=== PATIENT | female | born 1995 ===

== ENCOUNTER 2021-08-31 20:53 | Inpatient (IN) | payer OTHER, SELFPAY ==
--- NOTE | ~2021-08-31 | US_ITS ---
EXAMINATION: US PELVIS CLINICAL INFORMATION: Cramping COMPARISON: None TECHNIQUE: Ultrasound of the pelvis is performed using both transabdominal and transvaginal transducers along with Doppler. Transvaginal imaging is performed due to inadequate visualization transabdominally. FINDINGS: The uterus is anteverted and measures 6.2 x 1.8 x 3.9 cm in dimension. No focal uterine lesion is seen. There is an IUD in the uterus in satisfactory position. The endometrium does not appear thickened measuring 0.5 cm. The right ovary is normal-appearing and measures 3.7 x 2.9 x 1.7 cm. The left ovary measures 3.6 x 2 x 1.9 cm. There is a 1.6 x 1.8 x 2.1 cm complex left ovarian cyst. There is a small amount of fluid in the pelvis. US/US pelvic and transvaginal IMPRESSION: IUD in the uterus in satisfactory position. Small complex left ovarian cyst probably representing a physiologic cyst.
[2021-08-31 22:04] VITALS: BP 101/69; PULSE 82; RESP 16; TEMP 36.6; O2SAT 100
[2021-08-31 23:05] VITALS: BMI 22.8
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
--- NOTE | 2021-09-01 | ECG_ITS ---
Test Reason : baseline for antipsychotics Blood Pressure : / mmHG Vent. Rate : 085 BPM Atrial Rate : 085 BPM P-R Int : 128 ms QRS Dur : 082 ms QT Int : 360 ms P-R-T Axes : 072 082 052 degrees QTc Int : 428 ms Sinus rhythm with marked sinus arrhythmia Otherwise normal ECG No previous ECGs available Referred By: Maria E Her Electronically Signed By:Kavin Ashton
[2021-09-01 06:00] VITALS: BP 103/72; PULSE 84; RESP 16; TEMP 36.8; O2SAT 100
[2021-09-01 07:00] VITALS: BMI 21.7
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
[2021-09-01] MEDS: OLANZapine ODT 10 MG TAB.RAPDIS TRANSLINGU ×3 (11:01→20:45)
[2021-09-01] MEDS: LORazepam 1 MG TABLET 2 MG PO (11:01)
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
[2021-09-01] MEDS: Acetaminophen 325 MG TABLET 650 MG PO (12:56)
[2021-09-01 17:53] LABS: Alanine Aminotransferase 23 U/L (0-31); Albumin Level 3.9 g/dL (3.5-5.0); Alkaline Phosphatase 46 U/L (39-117); Anion Gap 8 (12-20); Aspartate Amino Transferase 17 U/L (5-31); Bilirubin Total 0.6 mg/dL (0.0-1.0); Blood Urea Nitrogen 10 mg/dL (9-16); Calcium 9.5 mg/dL (8.4-10.2); Carbon Dioxide 33 mmol/L (22-29); Chloride 105 mmol/L (96-108); Creatinine Clr Calc Pharmacy 83.9; Estimated Glomerular Filt Rate > 60; Glucose Random 75 mg/dL (60-115); Potassium 3.6 mmol/L (3.3-5.1); Sodium 142 mmol/L (135-145); Total Protein 5.9 g/dL (6.5-8.0)
[2021-09-01 18:00] VITALS: BP 108/64; PULSE 90; RESP 14; TEMP 36.7; O2SAT 100
[2021-09-02] MEDS: OLANZapine ODT 10 MG TAB.RAPDIS TRANSLINGU ×3 (00:30→20:56)
[2021-09-02] MEDS: LORazepam 1 MG TABLET PO ×3 (00:30→15:16)
[2021-09-02] MEDS: Acetaminophen 325 MG TABLET 650 MG PO ×2 (03:52→15:15)
[2021-09-02 07:57] LABS: Estimated Average Glucose 94 mg/dL; Hemoglobin A1c % 4.9 %
[2021-09-02 08:00] VITALS: BP 117/79; PULSE 81; RESP 15; TEMP 36.6; O2SAT 100
[2021-09-02 08:03] LABS: Cholesterol 120 mg/dL; HDL Cholesterol 42 mg/dL; LDL Cholesterol Calculated 69 mg/dl; Triglycerides 48 mg/dL
[2021-09-02 09:11] LABS: Folate 10.1 ng/mL (> or = 4.0); Vitamin B12 483 pg/mL (200-900)
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
[2021-09-02 20:59] VITALS: BP 123/81; PULSE 103; TEMP 36.2; O2SAT 100
[2021-09-03] MEDS: OLANZapine ODT 10 MG TAB.RAPDIS TRANSLINGU ×2 (09:40→20:28)
[2021-09-03 09:45] VITALS: BP 121/82; PULSE 120; RESP 14; TEMP 36.4; O2SAT 95
[2021-09-03 12:06] VITALS: BP 105/70; PULSE 89
[2021-09-03] MEDS: Acetaminophen 325 MG TABLET 650 MG PO (12:28)
[2021-09-03 18:00] VITALS: BP 118/70; PULSE 111; RESP 14; TEMP 36.3; O2SAT 100
[2021-09-03 22:00] VITALS: BP 118/71; PULSE 98
[2021-09-03 22:42] VITALS: BP 126/69; PULSE 99
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
[2021-09-04] MEDS: Acetaminophen 325 MG TABLET 650 MG PO ×2 (01:04→23:38)
[2021-09-04] MEDS: traZODone HCL 50 MG TABLET PO (01:05)
[2021-09-04] MEDS: hydrOXYzine HCL 25 MG TABLET PO (01:05)
[2021-09-04 06:00] VITALS: BP 121/70; PULSE 113; RESP 16; TEMP 36.6; O2SAT 99
[2021-09-04] MEDS: OLANZapine ODT 10 MG TAB.RAPDIS TRANSLINGU ×3 (08:46→21:21)
[2021-09-04] MEDS: LORazepam 1 MG TABLET PO (12:02)
[2021-09-04 18:00] VITALS: BP 127/73; PULSE 80; RESP 18; TEMP 37; O2SAT 100
--- NOTE | 2021-09-04 22:53 | HO.PSYCHPN ---
Subjective Subjective Date of Service: 09/04/21 Reason For Visit: Unspecified Cannabis related d/o, brief psychotic Subjective Notes: Conditional Voluntary Healthcare Proxy: No Mental Status Exam Mental Status Exam Narrative: Patient tangential bizarre preoccupation illogical denies SI denies HI tangential in thought mood flat anxious Patient with digressive speech paranoid preoccupations not aggressive passive no insight Diagnostics Vital Signs (24Hr): Vital Signs - 24 hr 09/04/21 06:00 09/04/21 18:00 Temperature 97.9 F 98.6 F Pulse Rate 113 H 80 Respiratory Rate 16 18 Blood Pressure 121/70 127/73 Pulse Oximetry 99 100 BMI result Body Mass Index 21.7 Labs Results: 09/01/21 17:23 Medications Medications Current Medications Acetaminophen (Acetaminophen 325 Mg Tablet) 650 mg PO Q6H PRN PRN Reason: Headache/Pain Mild Scale (1-3) Last Admin: 09/04/21 01:04 Dose: 650 mg Documented by: Al Hydroxide/Mg Hydroxide (Magnesium Hydrox/Alum Hydrox 30 Ml Oral.Susp) 30 ml PO Q6H PRN PRN Reason: Heartburn/Nausea Hydroxyzine HCl (Hydroxyzine Hcl 25 Mg Tablet) 25 mg PO BEDTIME PRN PRN Reason: Anxiety Last Admin: 09/04/21 01:05 Dose: 25 mg Documented by: Lorazepam (Lorazepam 1 Mg Tablet) 1 mg PO Q4H PRN PRN Reason: Anxiety Last Admin: 09/04/21 12:02 Dose: 1 mg Documented by: Magnesium Hydroxide (Milk Of Magnesia 30 Ml Oral.Susp) 30 ml PO DAILY PRN PRN Reason: Constipation Nicotine Polacrilex (Nicotine Polacrilex 2 Mg Gum) 2 mg BUCCAL Q2H PRN PRN Reason: Nicotine Cravings Olanzapine (Olanzapine Odt 10 Mg Tab.Rapdis) 10 mg TRANSLINGU BID PHI Last Admin: 09/04/21 21:21 Dose: 10 mg Documented by: Olanzapine (Olanzapine Odt 10 Mg Tab.Rapdis) 10 mg TRANSLINGU Q6H PRN PRN Reason: agitation Last Admin: 09/04/21 12:02 Dose: 10 mg Documented by: Trazodone HCl (Trazodone Hcl 50 Mg Tablet) 50 mg PO BEDTIME PRN PRN Reason: Insomnia Last Admin: 09/04/21 01:05 Dose: 50 mg Documented by: Allergies Allergies Allergy/AdvReac Type Severity Reaction Status Date / Time apple Allergy Unknown Itching Verified 08/31/21 23:48 strawberry Allergy Unknown Itching Verified 08/31/21 23:48 Assessment & Plan Assessment & Plan (1) Psychosis: Status: Acute Code(s): F29 - Unspecified psychosis not due to a substance or known physiological condition (2) Cocaine use disorder, moderate, dependence: Status: Acute Code(s): F14.20 - Cocaine dependence, uncomplicated Assessment and Plan: Ms. Mccoy is a 25 year-old woman with hx of cocaine use, admitted for first episode of psychosis unclear if induced by cocaine. pt presents as very disorganized, with poor attention, entering other peers room, grabbing things, some degree of delirium versus jennifer psychosis. We discussed risks, benefits and alternative treatment options with both pt and her parents. Pt agrees to start olanzapine for psychosis. PLAN 1. Admit to M3, 5 mins checks safety 2. Start olanzapine 10mg po BID, with extra prn doses for agitation. 3. Ativan 1mg po q6hrs anxiety 09/02/2021 Continue olanzapine clarify diagnosis get additional history needs much reassurance and support unclear exact of use of cocaine also recent question trauma 09/03/2021 Patient remains psychotic continue Zyprexa 09/04/21 Pt psychotic perplexed tangential consider change to risp haldol I spent minutes with the patient and/or on the patient floor today, greater than?50% of which was spent counseling/coordinating care. Reason for contiued inpatient stay Substantial Risk for: inability to function and rapid decompensation
[2021-09-05] MEDS: LORazepam 1 MG TABLET PO ×4 (00:09→23:03)
[2021-09-05] MEDS: OLANZapine ODT 10 MG TAB.RAPDIS TRANSLINGU ×2 (08:45→23:03)
[2021-09-05 09:00] VITALS: BP 113/62; PULSE 79; TEMP 37.1; O2SAT 98
--- NOTE | 2021-09-05 13:15 | HO.PSYCHPN ---
Subjective Subjective Date of Service: 09/05/21 Reason For Visit: Unspecified Cannabis related d/o, brief psychotic Subjective Notes: Conditional Voluntary Interim History: Pt with poor attention. She reports she does not remember much about the weekend or reasons for being in the hospital. She notes that she is more confused. She denies VH/AH. She continues to enter peers rooms, less intrusive to others. She denies SI/HI. She reports she works as [employer] at [employer] but does not remember for how long. Medication Compliance: Yes Side effects from medications: No Review of Systems Review of Systems Yes Unobtainable due to mental status Constitutional: Denies lethargy Eyes: Denies no additional eye complaints Denies dizziness Cardiovascular: Denies chest pain, Denies chest pain at rest, Reports claudication (left), Denies leg edema and Denies dyspnea Respiratory: Denies dyspnea Gastrointestinal: Denies constipation and Denies diarrhea Musculoskeletal: Denies tingling Denies dizziness, Denies memory loss and Denies tingling Psychiatric: Denies memory loss Diagnostics Vital Signs (24Hr): Vital Signs - 24 hr 09/04/21 18:00 Temperature 98.6 F Pulse Rate 80 Respiratory Rate 18 Blood Pressure 127/73 Pulse Oximetry 100 BMI result Body Mass Index 21.7 Labs Results: 09/01/21 17:23 Medications Medications Current Medications Acetaminophen (Acetaminophen 325 Mg Tablet) 650 mg PO Q6H PRN PRN Reason: Headache/Pain Mild Scale (1-3) Last Admin: 09/04/21 23:38 Dose: 650 mg Documented by: Al Hydroxide/Mg Hydroxide (Magnesium Hydrox/Alum Hydrox 30 Ml Oral.Susp) 30 ml PO Q6H PRN PRN Reason: Heartburn/Nausea Hydroxyzine HCl (Hydroxyzine Hcl 25 Mg Tablet) 25 mg PO BEDTIME PRN PRN Reason: Anxiety Last Admin: 09/04/21 01:05 Dose: 25 mg Documented by: Lorazepam (Lorazepam 1 Mg Tablet) 1 mg PO Q4H PRN PRN Reason: Anxiety Last Admin: 09/05/21 08:45 Dose: 1 mg Documented by: Magnesium Hydroxide (Milk Of Magnesia 30 Ml Oral.Susp) 30 ml PO DAILY PRN PRN Reason: Constipation Nicotine Polacrilex (Nicotine Polacrilex 2 Mg Gum) 2 mg BUCCAL Q2H PRN PRN Reason: Nicotine Cravings Olanzapine (Olanzapine Odt 10 Mg Tab.Rapdis) 10 mg TRANSLINGU BID PHI Last Admin: 09/05/21 08:45 Dose: 10 mg Documented by: Olanzapine (Olanzapine Odt 10 Mg Tab.Rapdis) 10 mg TRANSLINGU Q6H PRN PRN Reason: agitation Last Admin: 09/04/21 12:02 Dose: 10 mg Documented by: Trazodone HCl (Trazodone Hcl 50 Mg Tablet) 50 mg PO BEDTIME PRN PRN Reason: Insomnia Last Admin: 09/04/21 01:05 Dose: 50 mg Documented by: Allergies Allergies Allergy/AdvReac Type Severity Reaction Status Date / Time apple Allergy Unknown Itching Verified 08/31/21 23:48 strawberry Allergy Unknown Itching Verified 08/31/21 23:48 Assessment & Plan Assessment & Plan (1) Psychosis: Status: Acute Code(s): F29 - Unspecified psychosis not due to a substance or known physiological condition (2) Cocaine use disorder, moderate, dependence: Status: Acute Code(s): F14.20 - Cocaine dependence, uncomplicated Assessment and Plan: Ms. Mccoy is a 25 year-old woman with hx of cocaine use, admitted for first episode of psychosis unclear if induced by cocaine. pt presents as very disorganized, with poor attention, entering other peers room, grabbing things, some degree of delirium versus jennifer psychosis. We discussed risks, benefits and alternative treatment options with both pt and her parents. Pt agrees to start olanzapine for psychosis. PLAN 1. Admit to M3, 5 mins checks safety 2. Continue olanzapine 10mg po BID, with extra prn doses for agitation. 3. Ativan 1mg po q6hrs anxiety l I spent __25____ minutes with the patient and/or on the patient floor today, greater than?50% of which was spent counseling/coordinating care. Reason for contiued inpatient stay Substantial Risk for: inability to function
[2021-09-05] MEDS: Acetaminophen 325 MG TABLET 650 MG PO (14:02)
[2021-09-05] MEDS: hydrOXYzine HCL 25 MG TABLET PO (23:03)
[2021-09-05 23:05] VITALS: BP 131/75; PULSE 110; TEMP 37.1; O2SAT 99
[2021-09-05 23:13] VITALS: BP 115/59; PULSE 90
[2021-09-05 23:14] VITALS: BP 120/68; PULSE 109
[2021-09-05 23:15] VITALS: BP 120/68; PULSE 122
--- NOTE | 2021-09-06 01:29 | PC.NURSE ---
frequent request for bathroom. reports cramping and attributes this to ''having my IUD removed 3 months ago'' ? need for u/a.
[2021-09-06 08:00] VITALS: BP 125/84; PULSE 123; TEMP 37.3; O2SAT 100
[2021-09-06] MEDS: LORazepam 1 MG TABLET PO ×3 (09:15→21:05)
[2021-09-06] MEDS: OLANZapine ODT 10 MG TAB.RAPDIS TRANSLINGU ×2 (09:15→21:05)
[2021-09-06 10:00] VITALS: BP 125/75; PULSE 134
[2021-09-06 14:12] LABS: Appearance Urine CLEAR; Glucose Urine UA NEG (NEG); Leukocyte Esterase Urine NEG (NEG); Nitrite Urine NEG (NEG); Specific Gravity - Urine <= 1.005 (1.005-1.025); Urine Blood NEG (NEG); Urine Ketones NEG (NEG); Urine Protein NEG (NEG-TRACE)
[2021-09-06 14:13] LABS: Color Urine STRAW
--- NOTE | 2021-09-06 14:33 | P.PNPSI_ITS ---
Subjective Subjective Date of Service: 09/06/21 Reason For Visit: Unspecified Cannabis related d/o, brief psychotic Interim History: Pt reports she feels great! reports she has a lot of energy and can't stop which she states she likes Pt reports she thinks she may be or that her IUD felt off as she can't feel it. Pt denies burning sensation when urinating, however, had reported to nursing frequent urination. She initially denied pelvic pain but later reports having cramps, unable to provide much detail as timing or frequency or intensity. Pt pacing faust, intrusive to peers. Needs constant redirection. She denies SI/HI. She reports she hears voices of her brother but can't tell me what they say. She states she has not talk to them over the phone, that she hears them when she can't see them. Review of Systems Review of Systems Yes Unobtainable due to mental status Constitutional: Denies lethargy Eyes: Denies no additional eye complaints Denies dizziness Cardiovascular: Denies chest pain, Denies chest pain at rest, Reports claudication (left), Denies leg edema and Denies dyspnea Respiratory: Denies dyspnea Gastrointestinal: Denies constipation and Denies diarrhea Musculoskeletal: Denies tingling Denies dizziness, Denies memory loss and Denies tingling Psychiatric: Denies memory loss Mental Status Exam Mental Status Exam Narrative: Appearance: casually groomed, fair hygiene in NAD Behavior:guarded at times psychomotor:pacing, walking down the faust Speech:clear, regular rate, rhythm, spontaneous Thought process:disorganized Thought content: Mood: great Affect: expansive SI:denies HI:denies VH/AH:reports hearing voices of brothers when they are not physically present nor talking with them over the phone Delusions:thinks she is Insight/judgment:impaired x 2. Memory/cog: alert, not oriented to month, nor situation, impaired secondary to psychiatric symptoms. Diagnostics Vital Signs (24Hr): Vital Signs - 24 hr 09/05/21 23:05 09/05/21 23:13 09/05/21 23:14 Temperature 98.7 F Pulse Rate 110 H 90 109 H Blood Pressure 131/75 115/59 L 120/68 Pulse Oximetry 99 09/05/21 23:15 09/06/21 08:00 09/06/21 10:00 Temperature 99.1 F Pulse Rate 122 H 123 H 134 H Blood Pressure 120/68 125/84 125/75 Pulse Oximetry 100 BMI result Body Mass Index 21.7 Labs Results: 09/01/21 17:23 Labs: Laboratory Results - last 48 hr 09/06/21 09:30 Urine Color STRAW Urine Appearance CLEAR Urine pH 6.0 Ur Specific Garrison <= 1.005 Urine Protein NEG Urine Glucose (UA) NEG Urine Ketones NEG Urine Blood NEG Urine Nitrite NEG Ur Leukocyte Esterase NEG Medications Medications Current Medications Acetaminophen (Acetaminophen 325 Mg Tablet) 650 mg PO Q6H PRN PRN Reason: Headache/Pain Mild Scale (1-3) Last Admin: 09/05/21 14:02 Dose: 650 mg Documented by: Al Hydroxide/Mg Hydroxide (Magnesium Hydrox/Alum Hydrox 30 Ml Oral.Susp) 30 ml PO Q6H PRN PRN Reason: Heartburn/Nausea Hydroxyzine HCl (Hydroxyzine Hcl 25 Mg Tablet) 25 mg PO BEDTIME PRN PRN Reason: Anxiety Last Admin: 09/05/21 23:03 Dose: 25 mg Documented by: Magnesium Hydroxide (Milk Of Magnesia 30 Ml Oral.Susp) 30 ml PO DAILY PRN PRN Reason: Constipation Nicotine Polacrilex (Nicotine Polacrilex 2 Mg Gum) 2 mg BUCCAL Q2H PRN PRN Reason: Nicotine Cravings Olanzapine (Olanzapine Odt 10 Mg Tab.Rapdis) 10 mg TRANSLINGU BID PHI Last Admin: 09/06/21 09:15 Dose: 10 mg Documented by: Olanzapine (Olanzapine Odt 10 Mg Tab.Rapdis) 10 mg TRANSLINGU Q6H PRN PRN Reason: agitation Last Admin: 09/04/21 12:02 Dose: 10 mg Documented by: Trazodone HCl (Trazodone Hcl 50 Mg Tablet) 50 mg PO BEDTIME PRN PRN Reason: Insomnia Last Admin: 09/04/21 01:05 Dose: 50 mg Documented by: Allergies Allergies Allergy/AdvReac Type Severity Reaction Status Date / Time apple Allergy Unknown Itching Verified 08/31/21 23:48 strawberry Allergy Unknown Itching Verified 08/31/21 23:48 Assessment & Plan Assessment & Plan (1) Psychosis: Status: Acute Code(s): F29 - Unspecified psychosis not due to a substance or known physiological condition (2) Cocaine use disorder, moderate, dependence: Status: Acute Code(s): F14.20 - Cocaine dependence, uncomplicated Assessment and Plan: Ms. Mccoy is a 25 year-old woman with hx of cocaine use, admitted for first episode of psychosis unclear if induced by cocaine. pt presents as very disorganized, with poor attention, entering other peers room, grabbing things, some degree of delirium versus jennifer psychosis. We discussed risks, benefits and alternative treatment options with both pt and her parents. Pt agrees to start olanzapine for psychosis. PLAN 1. Admit to M3, 5 mins checks safety 2. Continue olanzapine 10mg po BID, with extra prn doses for agitation. Start lithium 300mg po BID. Schedule ativan 1mg po TID 3. Ativan 1mg po q6hrs anxiety l I spent minutes with the patient and/or on the patient floor today, greater than?50% of which was spent counseling/coordinating care. Reason for contiued inpatient stay Substantial Risk for: inability to function
[2021-09-06 20:00] VITALS: BP 122/78; PULSE 95; RESP 16; TEMP 36.1; O2SAT 100
[2021-09-06] MEDS: Lithium Carbonate 300 MG CAPSULE PO (21:06)
[2021-09-06 22:10] VITALS: BP 114/65; PULSE 92
[2021-09-07] VITALS (7 sets, daily range): BP systolic 104–129; BP diastolic 59–81; PULSE 100–130; RESP 16; TEMP 36.1–36.9; O2SAT 100
--- NOTE | 2021-09-07 | ECG_ITS ---
Test Reason : cp Blood Pressure : / mmHG Vent. Rate : 104 BPM Atrial Rate : 104 BPM P-R Int : 138 ms QRS Dur : 070 ms QT Int : 334 ms P-R-T Axes : -08 -16 000 degrees QTc Int : 439 ms Sinus tachycardia Inferior infarct , age undetermined Abnormal ECG When compared with ECG of 02-SEP-2021 17:12, Inferior infarct is now Present T wave inversion now evident in Inferior leads Referred By: Maria E Her Electronically Signed By:NURYS AMOS MD
[2021-09-07] MEDS: OLANZapine ODT 10 MG TAB.RAPDIS TRANSLINGU ×2 (08:29→20:34)
[2021-09-07] MEDS: LORazepam 1 MG TABLET PO ×3 (08:30→20:33)
[2021-09-07] MEDS: Lithium Carbonate 300 MG CAPSULE PO (08:30)
--- NOTE | 2021-09-07 12:45 | P.PNPSI_ITS ---
Subjective Subjective Date of Service: 09/07/21 Reason For Visit: Unspecified Cannabis related d/o, brief psychotic Subjective Notes: Conditional Voluntary Interim History: Pt continues to report that she is very great! reports she has a lot of energy and can't stop which she states she likes Pt continues to be confused as to why she is in hospital. She also states it is august despite telling her several times that it is [place]. Pt pacing faust, intrusive to peers. Needs constant redirection. She denies SI/HI. She reports she hears voices of her brother but can't tell me what they say. She states she has not talk to them over the phone, that she hears them when she can't see them. No significant change. Medication Compliance: Yes Side effects from medications: No Review of Systems Review of Systems Yes Unobtainable due to mental status Constitutional: Denies lethargy Eyes: Denies no additional eye complaints Denies dizziness Cardiovascular: Denies chest pain, Denies chest pain at rest, Reports claudication (left), Denies leg edema and Denies dyspnea Respiratory: Denies dyspnea Gastrointestinal: Denies constipation and Denies diarrhea Musculoskeletal: Denies tingling Denies dizziness, Denies memory loss and Denies tingling Psychiatric: Denies memory loss Mental Status Exam Mental Status Exam Narrative: Appearance: casually groomed, fair hygiene in NAD Behavior:guarded at times psychomotor:pacing, walking down the faust Speech:clear, regular rate, rhythm, spontaneous Thought process:disorganized Thought content: Mood: great Affect: expansive SI:denies HI:denies VH/AH:reports hearing voices of brothers when they are not physically present nor talking with them over the phone Delusions:thinks she is Insight/judgment:impaired x 2. Memory/cog: alert, not oriented to month, nor situation, impaired secondary to psychiatric symptoms. Diagnostics Vital Signs (24Hr): Vital Signs - 24 hr 09/07/21 20:10 09/07/21 22:16 09/07/21 22:17 Temperature 97 F Pulse Rate 100 110 H 130 H Respiratory Rate 16 Blood Pressure 104/59 L 129/65 126/65 Pulse Oximetry 100 09/08/21 08:15 Temperature Pulse Rate 144 H Respiratory Rate Blood Pressure 124/61 Pulse Oximetry BMI result Body Mass Index 21.7 Labs Results: 09/01/21 17:23 Labs: Laboratory Results - last 48 hr 09/07/21 09/08/21 09/08/21 22:40 12:26 14:22 ESR Troponin I High Sens < 3.5 TSH 3.02 COVID-19 ([facility]) Negative COVID-19 Clin Com See Note 09/08/21 14:23 ESR 2 Troponin I High Sens TSH COVID-19 ([facility]) COVID-19 Clin Com Imaging Radiology Impressions: ITS Impressions Pelvic/Transvag US 09/07/21 09:41 IMPRESSION: IUD in the uterus in satisfactory position. Small complex left ovarian cyst probably representing a physiologic cyst. Medications Medications Current Medications Acetaminophen (Acetaminophen 325 Mg Tablet) 650 mg PO Q6H PRN PRN Reason: Headache/Pain Mild Scale (1-3) Last Admin: 09/08/21 11:50 Dose: 650 mg Documented by: Al Hydroxide/Mg Hydroxide (Magnesium Hydrox/Alum Hydrox 30 Ml Oral.Susp) 30 ml PO Q6H PRN PRN Reason: Heartburn/Nausea Benztropine Mesylate (Benztropine Mesylate 1 Mg Tablet) 1 mg PO Q8H PRN PRN Reason: Extrapyramidal Effects Haloperidol (Haloperidol 5 Mg Tablet) 5 mg PO BID [facility] Hydroxyzine HCl (Hydroxyzine Hcl 25 Mg Tablet) 25 mg PO BEDTIME PRN PRN Reason: Anxiety Last Admin: 09/07/21 21:20 Dose: 25 mg Documented by: Gresham Carbonate (Gresham Carbonate 300 Mg Capsule) 600 mg PO BID [facility] Last Admin: 09/08/21 09:01 Dose: 600 mg Documented by: Lorazepam (Lorazepam 1 Mg Tablet) 1 mg PO TID [facility] Last Admin: 09/08/21 15:30 Dose: 1 mg Documented by: Magnesium Hydroxide (Milk Of Magnesia 30 Ml Oral.Susp) 30 ml PO DAILY PRN PRN Reason: Constipation Metoprolol Tartrate (Metoprolol Tartrate 25 Mg Tablet) 25 mg PO BID [facility]; Protocol Last Admin: 09/08/21 12:52 Dose: 25 mg Documented by: Nicotine Polacrilex (Nicotine Polacrilex 2 Mg Gum) 2 mg BUCCAL Q2H PRN PRN Reason: Nicotine Cravings Olanzapine (Olanzapine Odt 10 Mg Tab.Rapdis) 10 mg TRANSLINGU Q6H PRN PRN Reason: agitation Last Admin: 09/08/21 05:17 Dose: 10 mg Documented by: Trazodone HCl (Trazodone Hcl 100 Mg Tablet) 100 mg PO BEDTIME PHI Trazodone HCl (Trazodone Hcl 100 Mg Tablet) 100 mg PO BEDTIME PRN PRN Reason: sleep Allergies Allergies Allergy/AdvReac Type Severity Reaction Status Date / Time apple Allergy Unknown Itching Verified 08/31/21 23:48 strawberry Allergy Unknown Itching Verified 08/31/21 23:48 Assessment & Plan Assessment & Plan (1) Psychosis: Status: Acute Code(s): F29 - Unspecified psychosis not due to a substance or known physiological condi tion (2) Cocaine use disorder, moderate, dependence: Status: Acute Code(s): F14.20 - Cocaine dependence, uncomplicated Assessment and Plan: Ms. Mccoy is a 25 year-old woman with hx of cocaine use, admitted for first episode of psychosis unclear if induced by cocaine. pt presents as very disorganized, with poor attention, entering other peers room, grabbing things, some degree of delirium versus jennifer psychosis. We discussed risks, benefits and alternative treatment options with both pt and her parents. Pt agrees to start olanzapine for psychosis. PLAN 1. Admit to M3, 5 mins checks safety 2. Continue olanzapine 10mg po BID, with extra prn doses for agitation. Increase lithium 600mg po BID. Schedule ativan 1mg po TID 3. Ativan 1mg po q6hrs anxiety l I spent minutes with the patient and/or on the patient floor today, greater than?50% of which was spent counseling/coordinating care. Reason for contiued inpatient stay Substantial Risk for: inability to function
[2021-09-07] MEDS: Acetaminophen 325 MG TABLET 650 MG PO (19:21)
[2021-09-07] MEDS: Lithium Carbonate 300 MG CAPSULE 600 MG PO (20:34)
[2021-09-07] MEDS: hydrOXYzine HCL 25 MG TABLET PO (21:20)
[2021-09-07 23:19] LABS: COVID-19 Test Negative (Negative)
--- NOTE | 2021-09-08 | ECG_ITS ---
Test Reason : PALPITATIONS Blood Pressure : / mmHG Vent. Rate : 085 BPM Atrial Rate : 085 BPM P-R Int : 150 ms QRS Dur : 082 ms QT Int : 354 ms P-R-T Axes : 069 077 052 degrees QTc Int : 421 ms Normal sinus rhythm Normal ECG When compared with ECG of 07-SEP-2021 18:48, Criteria for Inferior infarct are no longer Present ST elevation now present in Anterior leads T wave inversion no longer evident in Inferior leads Referred By: Maria E Her Electronically Signed By:NURYS AMOS MD
--- NOTE | 2021-09-08 | EEG_ITS ---
The waking background activity consists of low voltage fast frequencies seen diffusely, intermixed with the low voltage 9 to 10 hertz posterior alpha frequency. Photic stimulation is without activation. Hyperventilation was omitted. Drowsiness is characterized with diffuse theta slowing. No focal, lateralizing, or paroxysmal discharges seen. IMPRESSION: This awake and drowsy EEG appears within normal limits. MD ALFONZO Alva/ALEC / [id number]
[2021-09-08] MEDS: Acetaminophen 325 MG TABLET 650 MG PO ×3 (05:06→21:34)
[2021-09-08] MEDS: OLANZapine ODT 10 MG TAB.RAPDIS TRANSLINGU ×2 (05:17→09:01)
--- NOTE | 2021-09-08 05:22 | PC.NURSE ---
Patient responding to internal stimuli. Patient given Zyprexa 10 mg Po prn.
[2021-09-08 08:15] VITALS: BP 124/61; BP 124/73; BP 126/76; PULSE 118; PULSE 120; PULSE 144
[2021-09-08] MEDS: Lithium Carbonate 300 MG CAPSULE 600 MG PO (09:01)
[2021-09-08] MEDS: LORazepam 1 MG TABLET PO ×3 (09:01→21:34)
--- NOTE | 2021-09-08 10:03 | PC.NURSE ---
Patient tachycardic (118 supine, 120 sitting, 144 standing) but asymptomatic this morning noted when orthostatic VS were assessed and reported to Maria E Her NP. No further orders given.
[2021-09-08 12:45] VITALS: BP 123/75; PULSE 136; RESP 16; TEMP 36.6; O2SAT 98
[2021-09-08] MEDS: Metoprolol Tartrate 25 MG TABLET PO ×2 (12:52→21:34)
[2021-09-08] MEDS: Aspirin 81 MG TAB.CHEW PO (12:53)
[2021-09-08 12:58] LABS: Troponin-I High Sensitivity < 3.5 ng/L (<3.5-17.0)
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
[2021-09-08 14:10] VITALS: BP 123/75; PULSE 97; RESP 16; O2SAT 100
[2021-09-08 15:40] LABS: TSH reflex Free T4 3.02 uIU/mL (0.32-4.0)
[2021-09-08 15:50] LABS: Erythrocyte Sedimentation Rate 2 MM/HR (0-20)
[2021-09-08 18:00] VITALS: BP 127/86; PULSE 94; RESP 16; TEMP 36.4; O2SAT 100
[2021-09-08] MEDS: Throat Lozenge, Medicated LOZENGE 1 LOZENGE MUCOUS MEM ×2 (21:33→23:33)
[2021-09-08] MEDS: hydrOXYzine HCL 25 MG TABLET PO (21:34)
[2021-09-08] MEDS: traZODone HCL 100 MG TABLET PO (21:34)
[2021-09-08] MEDS: HaloperidoL 5 MG TABLET PO (21:34)
[2021-09-08] MEDS: Magnesium Hydrox/Alum Hydrox 30 ML ORAL.SUSP PO (23:33)
[2021-09-09] MEDS: Acetaminophen 325 MG TABLET 650 MG PO ×2 (03:55→13:21)
[2021-09-09 07:47] VITALS: BP 113/68; PULSE 85; RESP 16; TEMP 36.1; O2SAT 99
[2021-09-09] MEDS: LORazepam 1 MG TABLET PO ×2 (07:58→21:32)
[2021-09-09] MEDS: Metoprolol Tartrate 25 MG TABLET PO ×2 (07:58→21:32)
[2021-09-09] MEDS: HaloperidoL 5 MG TABLET PO ×2 (07:58→21:31)
[2021-09-09 08:24] LABS: HIV AB/AG Nonreactive (Nonreactive); HIV Num 1 0.07 S/CO (0.00-0.99)
[2021-09-09 08:35] LABS: Syphilis Screen Nonreactive (Nonreactive)
[2021-09-09 08:42] LABS: MANUAL DIFF FLAG NO
[2021-09-09 08:47] LABS: Basophils Percent Auto 0.2 % (0-2); Eosinophils Absolute Auto 0.2 X10*3/uL (0.0-0.4); Eosinophils Percent Auto 2.1 % (0-4); Hemoglobin 12.9 g/dl (12.0-16.0); Imm Gran Abs Auto 0.07 X10*3/uL (0.00-0.03); Imm Gran Pct Auto 0.8 % (0.0-0.4); Lymphocytes Absolute Auto 2.1 X10*3/uL (1.2-4.9); Lymphocytes Percent Auto 24.8 % (20-40); Mean Corpuscular HGB Conc 32.3 g/dl (31.0-35.0); Mean Corpuscular Volume 86.8 fL (80.0-98.0); Mean Platelet Volume 10.4 fL (9.4-12.3); Monocytes Absolute Auto 0.8 X10*3/uL (0.1-1.2); Neutrophils Absolute Auto 5.4 x10*3/uL (2.0-8.3); Neutrophils Percent Auto 63.1 % (45-73); Platelet Count 199 X10*3/uL (160-400); Red Blood Count 4.61 X10*6/uL (4.20-5.50); Red Cell Distribution Width 13.9 % (11.0-16.0); White Blood Count 8.5 X10*3/uL (4.8-10.8)
[2021-09-09 09:15] LABS: Alanine Aminotransferase 38 U/L (0-31); Albumin Level 3.9 g/dL (3.5-5.0); Alkaline Phosphatase 40 U/L (39-117); Anion Gap 11 (12-20); Aspartate Amino Transferase 25 U/L (5-31); Bilirubin Total < 0.2 mg/dL (0.0-1.0); Blood Urea Nitrogen 14 mg/dL (9-16); Calcium 9.5 mg/dL (8.4-10.2); Carbon Dioxide 25 mmol/L (22-29); Chloride 109 mmol/L (96-108); Creatinine Clr Calc Pharmacy 91.9; Estimated Glomerular Filt Rate > 60; Glucose Random 80 mg/dL (60-115); Potassium 3.9 mmol/L (3.3-5.1); Sodium 141 mmol/L (135-145); Total Protein 6.1 g/dL (6.5-8.0)
[2021-09-09] MEDS: Throat Lozenge, Medicated LOZENGE 1 LOZENGE MUCOUS MEM (11:40)
--- NOTE | 2021-09-09 12:03 | P.PNPSI_ITS ---
Subjective Subjective Date of Service: 09/09/21 Reason For Visit: Palpitations Subjective Notes: Conditional Voluntary Interim History: Pt met with this designer writer and ELEONORA Pompa. Pt reports she does not remember why she is here, despite this information being provided daily. She also continues to report that it is August. Pt continues to report she has a lot of energy, she appears tired and states she will lay down to bed after meeting but after she is seen pacing faust slowly. Pt denies any pain. She reports hearing voices of all my good memories. When asked if they are multiple voices or female/male, she states may be transgendered. Pt makes reference to having a fake father, being but would not elaborate. She continues to present as disorganized, entering peers room, purposeless behaviors. She denies SI/HI. Medication Compliance: Yes Side effects from medications: No Review of Systems Review of Systems Yes Unobtainable due to mental status Constitutional: Reports no additional constitutional complaints and Denies lethargy Eyes: Reports no additional eye complaints Reports system reviewed and no additional complaints, except as documented and Denies dizziness Cardiovascular: Reports chest pain, Denies chest pain at rest, Denies chest pain with activity, Reports rapid heart rate, Reports claudication (left), Denies leg edema, Denies lightheadedness, Denies Loss of Consciousness and Denies dyspnea Respiratory: Reports no additional respiratory complaints and Denies dyspnea Gastrointestinal: Reports no additional gastrointestinal complaints, Denies constipation and Denies diarrhea Musculoskeletal: Reports no additional musculoskeletal complaints and Denies tingling Skin/Breast: Reports system reviewed and no additional complaints, except as do cu Reports system reviewed and no additional complaints, except as documented, Denies dizziness, Denies memory loss and Denies tingling Psychiatric: Reports no additional psychiatric complaints and Denies memory loss Endocrine: Reports no additional endocrine complaints Hematologic/Lymphatic: Reports no additional hematologic/lymphatic complaints Mental Status Exam Mental Status Exam Narrative: Appearance: casually groomed, fair hygiene in NAD Behavior:pleasantly disoriented psychomotor:pacing, walking down the faust Speech:clear, regular rate, rhythm, spontaneous Thought process:disorganized Thought content:feeling great, Mood: great Affect: constricted SI:denies HI:denies VH/AH:reports hearing voices of brothers when they are not physically present nor talking with them over the phone Delusions:thinks she is Insight/judgment:impaired x 2. Memory/cog: alert, not oriented to month, nor situation, impaired secondary to psychiatric symptoms. Diagnostics Vital Signs (24Hr): Vital Signs - 24 hr 09/08/21 18:00 09/09/21 07:47 Temperature 97.6 F 97.0 F Pulse Rate 94 85 Respiratory Rate 16 16 Blood Pressure 127/86 113/68 Pulse Oximetry 100 99 BMI result Body Mass Index 21.7 Labs Results: 09/09/21 08:23 09/09/21 08:23 Labs: Laboratory Results - last 48 hr 09/07/21 09/08/21 09/08/21 22:40 12:26 14:22 WBC RBC Hgb Hct MCV MCH MCHC RDW Plt Count MPV Immature Gran % (Auto) Neut % (Auto) Lymph % (Auto) Island % (Auto) Eos % (Auto) Baso % (Auto) Lymph # (Auto) Island # (Auto) Eos # (Auto) Baso # (Auto) Abs Immat Gran (auto) Absolute Neuts (auto) Absolute Nucleated RBC Nucleated RBC % (auto) ESR Sodium Potassium Chloride Carbon Dioxide Anion Gap BUN Creatinine Estim Creat Clear Calc Estimated GFR Random Glucose Calcium Total Bilirubin AST ALT Alkaline Phosphatase Troponin I High Sens < 3.5 C-React Prot High Sens Total Protein Albumin TSH T.pallidum Ab (EIA) COVID-19 (AZUL) Negative [facility] See Note HIV 1&2 Ab/P24 Ag 4thGn Nonreactive 09/08/21 09/08/21 09/08/21 14:22 14:23 14:23 WBC RBC Hgb Hct MCV MCH MCHC RDW Plt Count MPV Immature Gran % (Auto) Neut % (Auto) Lymph % (Auto) Island % (Auto) Eos % (Auto) Baso % (Auto) Lymph # (Auto) Island # (Auto) Eos # (Auto) Baso # (Auto) Abs Immat Gran (auto) Absolute Neuts (auto) Absolute Nucleated RBC Nucleated RBC % (auto) ESR Sodium Potassium Chloride Carbon Dioxide Anion Gap BUN Creatinine Estim Creat Clear Calc Estimated GFR Random Glucose Calcium Total Bilirubin AST ALT Alkaline Phosphatase Troponin I High Sens C-React Prot High Sens 1.5 Total Protein Albumin TSH 3.02 T.pallidum Ab (EIA) Nonreactive COVID-19 (AZUL) COVID-[facility] Com HIV 1&2 Ab/P24 Ag 4thGn 09/08/21 09/09/21 09/09/21 14:23 08:23 08:23 WBC 8.5 RBC 4.61 Hgb 12.9 Hct 40.0 MCV 86.8 MCH 28.0 MCHC 32.3 RDW 13.9 Plt Count 199 MPV 10.4 Immature Gran % (Auto) 0.8 H Neut % (Auto) 63.1 Lymph % (Auto) 24.8 Island % (Auto) 9.0 Eos % (Auto) 2.1 Baso % (Auto) 0.2 Lymph # (Auto) 2.1 Island # (Auto) 0.8 Eos # (Auto) 0.2 Baso # (Auto) 0.0 Abs Immat Gran (auto) 0.07 H Absolute Neuts (auto) 5.4 Absolute Nucleated RBC 0.000 Nucleated RBC % (auto) 0.0 ESR 2 Sodium 141 Potassium 3.9 Chloride 109 H Carbon Dioxide 25 Anion Gap 11 L BUN 14 Creatinine 0.74 Estim Creat Clear Calc 91.9 Estimated GFR > 60 Random Glucose 80 Calcium 9.5 Total Bilirubin < 0.2 AST 25 D ALT 38 H Alkaline Phosphatase 40 Troponin I High Sens C-React Prot High Sens Total Protein 6.1 L Albumin 3.9 TSH T.pallidum Ab (EIA) COVID-19 (AZUL) COVID-19 Clin Com HIV 1&2 Ab/P24 Ag 4thGn Imaging Radiology Impressions: ITS Impressions Pelvic/Transvag US 09/07/21 09:41 IMPRESSION: IUD in the uterus in satisfactory position. Small complex left ovarian cyst probably representing a physiologic cyst. Medications Medications Current Medications Acetaminophen (Acetaminophen 325 Mg Tablet) 650 mg PO Q6H PRN PRN Reason: Headache/Pain Mild Scale (1-3) Last Admin: 09/09/21 13:21 Dose: 650 mg Documented by: Al Hydroxide/Mg Hydroxide (Magnesium Hydrox/Alum Hydrox 30 Ml Oral.Susp) 30 ml PO Q6H PRN PRN Reason: Heartburn/Nausea Last Admin: 09/08/21 23:33 Dose: 30 ml Documented by: Benzocaine (Throat Lozenge, Medicated Lozenge) 1 lozenge MUCOUS MEM Q2H PRN PRN Reason: Sore Throat Last Admin: 09/09/21 11:40 Dose: 1 lozenge Documented by: Benztropine Mesylate (Benztropine Mesylate 1 Mg Tablet) 1 mg PO Q8H PRN PRN Reason: Extrapyramidal Effects Divalproex Sodium (Divalproex Sodium 500 Mg Tablet.Dr) 500 mg PO BID [facility] Last Admin: 09/09/21 12:48 Dose: 500 mg Documented by: Haloperidol (Haloperidol 5 Mg Tablet) 5 mg PO BID [facility] Last Admin: 09/09/21 07:58 Dose: 5 mg Documented by: Hydroxyzine HCl (Hydroxyzine Hcl 25 Mg Tablet) 25 mg PO BEDTIME PRN PRN Reason: Anxiety Last Admin: 09/08/21 21:34 Dose: 25 mg Documented by: Lorazepam (Lorazepam 1 Mg Tablet) 1 mg PO TID [facility] Last Admin: 09/09/21 16:02 Dose: Not Given Documented by: Magnesium Hydroxide (Milk Of Magnesia 30 Ml Oral.Susp) 30 ml PO DAILY PRN PRN Reason: Constipation Metoprolol Tartrate (Metoprolol Tartrate 25 Mg Tablet) 25 mg PO BID [facility]; Protocol Last Admin: 09/09/21 07:58 Dose: 25 mg Documented by: Nicotine Polacrilex (Nicotine Polacrilex 2 Mg Gum) 2 mg BUCCAL Q2H PRN PRN Reason: Nicotine Cravings Olanzapine (Olanzapine Odt 10 Mg Tab.Rapdis) 10 mg TRANSLINGU Q6H PRN PRN Reason: agitation Last Admin: 09/08/21 05:17 Dose: 10 mg Documented by: Trazodone HCl (Trazodone Hcl 100 Mg Tablet) 100 mg PO BEDTIME [facility] Last Admin: 09/08/21 21:34 Dose: 100 mg Documented by: Trazodone HCl (Trazodone Hcl 100 Mg Tablet) 100 mg PO BEDTIME PRN PRN Reason: sleep Allergies Allergies Allergy/AdvReac Type Severity Reaction Status Date / Time apple Allergy Unknown Itching Verified 08/31/21 23:48 strawberry Allergy Unknown Itching Verified 08/31/21 23:48 Assessment & Plan Assessment & Plan (1) Cocaine use disorder, moderate, dependence: Status: Acute Code(s): F14.20 - Cocaine dependence, uncomplicated (2) Psychosis: Status: Acute Code(s): F29 - Unspecified psychosis not due to a substance or known physiological condition Assessment and Plan: Ms. Kovacs is a 25 year-old woman who was brought to [facility] ED after she presented as disorganized, confused, responding to internal stimuli. Hx of cocaine but utox neg in ED. This is her first psychotic episode 09/09 continues to present as disorganized, anterograde amnesia. reports AH of brother and good memories. pacing, not sleeping well. PLAN 1. continue haldol 5mg po BID (switched from olanzapine due to minimal efficacy) 2. continue ativan 1mg po TID 3. Start depakote 500mg po BID 4. coordination of care 5. safety- 15 minutes checks. I spent _25 minutes with the patient and/or on the patient floor today, greater than?50% of which was spent counseling/coordinating care. Reason for contiued inpatient stay Substantial Risk for: inability to function
[2021-09-09] MEDS: LORazepam 2 MG/ML VIAL IM (12:48)
[2021-09-09] MEDS: Divalproex Sodium 500 MG TABLET.DR PO ×2 (12:48→21:31)
[2021-09-09 13:41] LABS: CRP High Sensitivity 1.5 mg/L
--- NOTE | 2021-09-09 14:18 | P.CONCA_ITS ---
History of Present Illness History of Present Illness Date of Service: 09/09/21 Requesting physician: Maria E Her Chief complaint: Palpitations Narrative: I was requested to see Chen in cardiology consultation today for symptoms of palpitation chest discomfort. She is a 25-year-old of female was admitted with question psychosis. Yesterday she says she was having anxiety episodes subsequently noticed heart rate racing and some chest discomfort. She says she has never had this symptoms in the past. EKG performed yesterday showed sinus tachycardia possible inferior Q-waves [place] this appears to be more lead placement related rather than true myocardial infarction. Subsequent EKG shows sinus rhythm. She has never had any prior cardiac history. She denies any cocaine use, says does use marijuana. Denies any prior other medical problems. Review of Systems Constitutional: Constitutional: Reports no additional constitutional complaints Eyes: Eyes: Reports no additional eye complaints ENT: Reports system reviewed and no additional complaints, except as documented Cardiovascular: Cardiovascular: Reports chest pain, Denies chest pain with activity, Reports rapid heart rate, Denies lightheadedness, Denies Loss of Consciousness and Denies dyspnea Respiratory: Respiratory: Reports no additional respiratory complaints and Denies dyspnea Gastrointestinal: Gastrointestinal: Reports no additional gastrointestinal complaints Genitourinary: Genitourinary: Reports no additional female genitourinary complaints Musculoskeletal: Musculoskeletal: Reports no additional musculoskeletal complaints Integumentary/Breasts: Skin/Breast: Reports system reviewed and no additional complaints, except as docu Neurologic: Reports system reviewed and no additional complaints, except as documented Psychiatric: Psychiatric: Reports no additional psychiatric complaints Endocrine: Endocrine: Reports no additional endocrine complaints Hematologic/Lymphatic: Hematologic/Lymphatic: Reports no additional hematologic/lymphatic complaints [facility] Past Medical History Medical History Bronchitis Social History Social History Household Members: None Housing: Apartment Do you presently have visiting nurse or other home services: No Patient Tobacco Use Status: Former Tobacco user Quit Date: unknown Tobacco use type: Cigarette Years Smoked: Pt. can't remember. Smoked in Last 30 Days: No e-Cigarette/Vaping Use: Never Used Patient Interested in Nicotine Replacement: No (Pt. no longer smokes.) Patient Given Instructions on How to Stop Smoking: No (Pt. is a nonsmoker) Second Hand Smoke Exposure: No Use of substances other than those prescribed or required for medical reasons: Unknown Substance Use Type: Marijuana Last Used Substance: Unknown Currently Displaying Signs/Symptoms of Drug Intoxication Withdrawal: No Any prior treatment program specific to substance use: No Have you been hit, kicked, punched, or otherwise hurt by someone within the past year? If so, by whom?: No (Pt. unable to remember.) Do you feel safe in your current relationship?: No Current Relationship Is there a partner from a previous relationship who is making you feel unsafe now?: No Are you made to feel afraid or neglected: No Spiritual Healthcare Practices: n/a Taoism Healthcare Practices: n/a Cultural Healthcare Practices: n/a Advance Directives: No Advance Directives Information Provided: No Advance Directives on File: No Do you have thoughts of harming others: None Do you have a plan to hurt others: No Plan Recently lost weight without trying: Yes How much weight loss: Unsure Eating poorly because of decreased appetite: No Nutrition screen score: 4 Nutrition Risks: No Nutritional Risk Patient : No : No Poor oral hygiene: No service: No Meds Allergies Allergy/AdvReac Type Severity Reaction Status Date / Time apple Allergy Unknown Itching Verified 08/31/21 23:48 strawberry Allergy Unknown Itching Verified 08/31/21 23:48 Active Medications: Current Medications Acetaminophen (Acetaminophen 325 Mg Tablet) 650 mg PO Q6H PRN PRN Reason: Headache/Pain Mild Scale (1-3) Last Admin: 09/09/21 13:21 Dose: 650 mg Documented by: Al Hydroxide/Mg Hydroxide (Magnesium Hydrox/Alum Hydrox 30 Ml Oral.Susp) 30 ml PO Q6H PRN PRN Reason: Heartburn/Nausea Last Admin: 09/08/21 23:33 Dose: 30 ml Documented by: Benzocaine (Throat Lozenge, Medicated Lozenge) 1 lozenge MUCOUS MEM Q2H PRN PRN Reason: Sore Throat Last Admin: 09/09/21 11:40 Dose: 1 lozenge Documented by: Benztropine Mesylate (Benztropine Mesylate 1 Mg Tablet) 1 mg PO Q8H PRN PRN Reason: Extrapyramidal Effects Divalproex Sodium (Divalproex Sodium 500 Mg Tablet.) 500 mg PO BID [facility] Last Admin: 09/09/21 12:48 Dose: 500 mg Documented by: Haloperidol (Haloperidol 5 Mg Tablet) 5 mg PO BID [facility] Last Admin: 09/09/21 07:58 Dose: 5 mg Documented by: Hydroxyzine HCl (Hydroxyzine Hcl 25 Mg Tablet) 25 mg PO BEDTIME PRN PRN Reason: Anxiety Last Admin: 09/08/21 21:34 Dose: 25 mg Documented by: Lorazepam (Lorazepam 1 Mg Tablet) 1 mg PO TID [facility] Last Admin: 09/09/21 07:58 Dose: 1 mg Documented by: Magnesium Hydroxide (Milk Of Magnesia 30 Ml Oral.Susp) 30 ml PO DAILY PRN PRN Reason: Constipation Metoprolol Tartrate (Metoprolol Tartrate 25 Mg Tablet) 25 mg PO BID [facility]; Protocol Last Admin: 09/09/21 07:58 Dose: 25 mg Documented by: Nicotine Polacrilex (Nicotine Polacrilex 2 Mg Gum) 2 mg BUCCAL Q2H PRN PRN Reason: Nicotine Cravings Olanzapine (Olanzapine Odt 10 Mg Tab.Rapdis) 10 mg TRANSLINGU Q6H PRN PRN Reason: agitation Last Admin: 09/08/21 05:17 Dose: 10 mg Documented by: Trazodone HCl (Trazodone Hcl 100 Mg Tablet) 100 mg PO BEDTIME [facility] Last Admin: 09/08/21 21:34 Dose: 100 mg Documented by: Trazodone HCl (Trazodone Hcl 100 Mg Tablet) 100 mg PO BEDTIME PRN PRN Reason: sleep Home Medications Medication Instructions Recorded Confirmed Last Taken Type albuterol sulfate 90 mcg/actuation 2 puff INHALATION QID PRN 08/31/21 08/31/21 Unknown History aerosol inhaler (ProAir HFA) cetirizine 10 mg tablet (Allergy 10 mg PO DAILY 08/31/21 08/31/21 Unknown History Relief (cetirizine)) Physical Exam Vital Signs: Vital Signs: Last Vital Signs Temp 97.0 F 09/09/21 07:47 Pulse 85 09/09/21 07:47 Resp 16 09/09/21 07:47 BP 113/68 09/09/21 07:47 Pulse Ox 99 09/09/21 07:47 BMI result Body Mass Index 21.7 Const: General: cooperative, comfortable, no acute distress, alert and awake Nutritional Appearance: thin Orientation/consciousness: patient oriented x3 Limitations: no limitations HENMT: Head: Yes normocephalic and Yes atraumatic Neck: Neck: Yes trachea midline, Yes supple and Yes no JVD Resp: Effort & Inspection: normal respiratory effort Auscultation: clear to auscultation bilaterally Cardio: Jugular venous distension: no JVD Palpation: normal PMI Rate: regular rate Rhythm: regular rhythm Heart sounds: S1 normal heart sound present, S2 normal heart sound present, no click, no gallops, no murmurs and no rubs GI: Auscultation: normal bowel sounds Skin: General skin exam: no rashes or lesions noted Neuro: General: patient oriented x3 and no focal motor deficits Extrem: General: Yes no clubbing, cyanosis or edema Objective Labs and Meds Result diagrams: 09/09/21 08:23 09/09/21 08:23 Lab results: Laboratory Results - last 24 hr 09/08/21 09/08/21 09/08/21 14:22 14:22 14:23 WBC RBC Hgb Hct MCV MCH MCHC RDW Plt Count MPV Immature Gran % (Auto) Neut % (Auto) Lymph % (Auto) [place] % (Auto) Eos % (Auto) Baso % (Auto) Lymph # (Auto) [place] # (Auto) Eos # (Auto) Baso # (Auto) Abs Immat Gran (auto) Absolute Neuts (auto) Absolute Nucleated RBC Nucleated RBC % (auto) ESR Sodium Potassium Chloride Carbon Dioxide Anion Gap BUN Creatinine Estim Creat Clear Calc Estimated GFR Random Glucose Calcium Total Bilirubin AST ALT Alkaline Phosphatase C-React Prot High Sens Total Protein Albumin TSH 3.02 T.pallidum Ab (EIA) Nonreactive HIV 1&2 Ab/P24 Ag 4thGn Nonreactive 09/08/21 09/08/21 09/09/21 14:23 14:23 08:23 WBC 8.5 RBC 4.61 Hgb 12.9 Hct 40.0 MCV 86.8 MCH 28.0 MCHC 32.3 RDW 13.9 Plt Count 199 MPV 10.4 Immature Gran % (Auto) 0.8 H Neut % (Auto) 63.1 Lymph % (Auto) 24.8 [place] % (Auto) 9.0 Eos % (Auto) 2.1 Baso % (Auto) 0.2 Lymph # (Auto) 2.1 [place] # (Auto) 0.8 Eos # (Auto) 0.2 Baso # (Auto) 0.0 Abs Immat Gran (auto) 0.07 H Absolute Neuts (auto) 5.4 Absolute Nucleated RBC 0.000 Nucleated RBC % (auto) 0.0 ESR 2 Sodium Potassium Chloride Carbon Dioxide Anion Gap BUN Creatinine Estim Creat Clear Calc Estimated GFR Random Glucose Calcium Total Bilirubin AST ALT Alkaline Phosphatase C-React Prot High Sens 1.5 Total Protein Albumin TSH T.pallidum Ab (EIA) HIV 1&2 Ab/P24 Ag 4thGn 09/09/21 08:23 WBC RBC Hgb Hct MCV MCH MCHC RDW Plt Count MPV Immature Gran % (Auto) Neut % (Auto) Lymph % (Auto) [place] % (Auto) Eos % (Auto) Baso % (Auto) Lymph # (Auto) [place] # (Auto) Eos # (Auto) Baso # (Auto) Abs Immat Gran (auto) Absolute Neuts (auto) Absolute Nucleated RBC Nucleated RBC % (auto) ESR Sodium 141 Potassium 3.9 Chloride 109 H Carbon Dioxide 25 Anion Gap 11 L BUN 14 Creatinine 0.74 Estim Creat Clear Calc 91.9 Estimated GFR > 60 Random Glucose 80 Calcium 9.5 Total Bilirubin < 0.2 AST 25 D ALT 38 H Alkaline Phosphatase 40 C-React Prot High Sens Total Protein 6.1 L Albumin 3.9 TSH T.pallidum Ab (EIA) HIV 1&2 Ab/P24 Ag 4thGn Assessment and Plan (1) Palpitations: Status: Acute Palpitations and chest pain related to sinus tachycardia related to anxiety/panic episode. Treat underlying panic/anxiety episode. No specific treatment from cardiac perspective at this point time. She continues to have these episodes as outpatient may require further workup with event monitor. Her Q-waves in inferior leads are most likely due to lead placement and not worrisome at this point time. No further workup indicated and patient. Continue treat her underlying psychiatric issue. Will sign of the case. Thank you for allowing me to partake in the care Procedures Date of Service Date of Service: 09/09/21
[2021-09-09] MEDS: Magnesium Hydrox/Alum Hydrox 30 ML ORAL.SUSP PO (18:26)
[2021-09-09 18:28] VITALS: BP 121/66; PULSE 102; RESP 17; TEMP 36.6; O2SAT 99
[2021-09-09] MEDS: traZODone HCL 100 MG TABLET PO (21:32)
[2021-09-09 22:11] LABS: Anti Nuclear Antibody Screen NEGATIVE (NEGATIVE)
[2021-09-09] MEDS: hydrOXYzine HCL 25 MG TABLET PO (22:49)
[2021-09-10] MEDS: Metoprolol Tartrate 25 MG TABLET PO ×2 (08:21→21:13)
[2021-09-10] MEDS: Divalproex Sodium 500 MG TABLET.DR PO ×2 (08:21→21:13)
[2021-09-10] MEDS: LORazepam 1 MG TABLET PO ×2 (08:21→15:41)
[2021-09-10] MEDS: HaloperidoL 5 MG TABLET PO ×2 (08:21→21:12)
[2021-09-10 08:34] VITALS: BP 123/65; PULSE 116; RESP 16; TEMP 36.9; O2SAT 98
[2021-09-10] MEDS: Magnesium Hydrox/Alum Hydrox 30 ML ORAL.SUSP PO ×2 (13:30→19:41)
[2021-09-10] MEDS: Throat Lozenge, Medicated LOZENGE 1 LOZENGE MUCOUS MEM (15:41)
--- NOTE | 2021-09-10 17:30 | P.PNPSI_ITS ---
Subjective Subjective Date of Service: 09/10/21 Reason For Visit: Palpitations Interim History: pt found resting in bed. easily rousable, states she is fine and has no questions or concerns for MD. per staff, had EEG yesterday. nonsensical, wandering, disorganized, illogical, pacing. long naps throughout the night. Mental Status Exam Mental Status Exam Narrative: dressed in [facility]. adequately groomed. no PMA/PMR evident. minimally cooperative. speech decr in amount. nml rate, loudness, prosody. thoughts linear and logical in exceedingly brief interaction. affect c onstricted. no SI/HI/AVH expressed. Diagnostics Vital Signs (24Hr): Vital Signs - 24 hr 09/09/21 18:28 09/10/21 08:34 Temperature 97.8 F 98.4 F Pulse Rate 102 H 116 H Respiratory Rate 17 16 Blood Pressure 121/66 123/65 Pulse Oximetry 99 98 BMI result Body Mass Index 21.7 Labs Results: 09/09/21 08:23 09/09/21 08:23 Labs: Laboratory Results - last 48 hr 09/08/21 09/08/21 09/08/21 14:22 14:23 14:23 WBC RBC Hgb Hct MCV MCH MCHC RDW Plt Count MPV Immature Gran % (Auto) Neut % (Auto) Lymph % (Auto) [place] % (Auto) Eos % (Auto) Baso % (Auto) Lymph # (Auto) [place] # (Auto) Eos # (Auto) Baso # (Auto) Abs Immat Gran (auto) Absolute Neuts (auto) Absolute Nucleated RBC Nucleated RBC % (auto) Sodium Potassium Chloride Carbon Dioxide Anion Gap BUN Creatinine Estim Creat Clear Calc Estimated GFR Random Glucose Calcium Total Bilirubin AST ALT Alkaline Phosphatase C-React Prot High Sens Total Protein Albumin GHULAM Screen NEGATIVE GHULAM Titer TNP GHULAM Titer 2 TNP GHULAM Titer 3 TNP GHULAM Pattern TNP GHULAM Pattern 2 TNP GHULAM Pattern 3 TNP T.pallidum Ab (EIA) Nonreactive HIV 1&2 Ab/P24 Ag 4thGn Nonreactive 09/08/21 09/09/21 09/09/21 14:23 08:23 08:23 WBC 8.5 RBC 4.61 Hgb 12.9 Hct 40.0 MCV 86.8 MCH 28.0 MCHC 32.3 RDW 13.9 Plt Count 199 MPV 10.4 Immature Gran % (Auto) 0.8 H Neut % (Auto) 63.1 Lymph % (Auto) 24.8 [place] % (Auto) 9.0 Eos % (Auto) 2.1 Baso % (Auto) 0.2 Lymph # (Auto) 2.1 [place] # (Auto) 0.8 Eos # (Auto) 0.2 Baso # (Auto) 0.0 Abs Immat Gran (auto) 0.07 H Absolute Neuts (auto) 5.4 Absolute Nucleated RBC 0.000 Nucleated RBC % (auto) 0.0 Sodium 141 Potassium 3.9 Chloride 109 H Carbon Dioxide 25 Anion Gap 11 L BUN 14 Creatinine 0.74 Estim Creat Clear Calc 91.9 Estimated GFR > 60 Random Glucose 80 Calcium 9.5 Total Bilirubin < 0.2 AST 25 D ALT 38 H Alkaline Phosphatase 40 C-React Prot High Sens 1.5 Total Protein 6.1 L Albumin 3.9 GHULAM Screen GHULAM Titer GHULAM Titer 2 GHULAM Titer 3 GHULAM Pattern GHULAM Pattern 2 GHULAM Pattern 3 T.pallidum Ab (EIA) HIV 1&2 Ab/P24 Ag 4thGn Imaging Radiology Impressions: ITS Impressions Pelvic/Transvag US 09/07/21 09:41 IMPRESSION: IUD in the uterus in satisfactory position. Small complex left ovarian cyst probably representing a physiologic cyst. Medications Medications Current Medications Acetaminophen (Acetaminophen 325 Mg Tablet) 650 mg PO Q6H PRN PRN Reason: Headache/Pain Mild Scale (1-3) Last Admin: 09/09/21 13:21 Dose: 650 mg Documented by: Al Hydroxide/Mg Hydroxide (Magnesium Hydrox/Alum Hydrox 30 Ml Oral.Susp) 30 ml PO Q6H PRN PRN Reason: Heartburn/Nausea Last Admin: 09/10/21 13:30 Dose: 30 ml Documented by: Benzocaine (Throat Lozenge, Medicated Lozenge) 1 lozenge MUCOUS MEM Q2H PRN PRN Reason: Sore Throat Last Admin: 09/10/21 15:41 Dose: 1 lozenge Documented by: Benztropine Mesylate (Benztropine Mesylate 1 Mg Tablet) 1 mg PO Q8H PRN PRN Reason: Extrapyramidal Effects Divalproex Sodium (Divalproex Sodium 500 Mg Tablet.) 500 mg PO BID [facility] Last Admin: 09/10/21 08:21 Dose: 500 mg Documented by: Haloperidol (Haloperidol 5 Mg Tablet) 5 mg PO BID [facility] Last Admin: 09/10/21 08:21 Dose: 5 mg Documented by: Hydroxyzine HCl (Hydroxyzine Hcl 25 Mg Tablet) 25 mg PO BEDTIME PRN PRN Reason: Anxiety Last Admin: 09/09/21 22:49 Dose: 25 mg Documented by: Lorazepam (Lorazepam 1 Mg Tablet) 1 mg PO TID [facility] Last Admin: 09/10/21 15:41 Dose: 1 mg Documented by: Magnesium Hydroxide (Milk Of Magnesia 30 Ml Oral.Susp) 30 ml PO DAILY PRN PRN Reason: Constipation Metoprolol Tartrate (Metoprolol Tartrate 25 Mg Tablet) 25 mg PO BID [facility]; Protocol Last Admin: 09/10/21 08:21 Dose: 25 mg Documented by: Nicotine Polacrilex (Nicotine Polacrilex 2 Mg Gum) 2 mg BUCCAL Q2H PRN PRN Reason: Nicotine Cravings Olanzapine (Olanzapine Odt 10 Mg Tab.Rapdis) 10 mg TRANSLINGU Q6H PRN PRN Reason: agitation Last Admin: 09/08/21 05:17 Dose: 10 mg Documented by: Trazodone HCl (Trazodone Hcl 100 Mg Tablet) 100 mg PO BEDTIME [facility] Last Admin: 09/09/21 21:32 Dose: 100 mg Documented by: Trazodone HCl (Trazodone Hcl 100 Mg Tablet) 100 mg PO BEDTIME PRN PRN Reason: sleep Allergies Allergies Allergy/AdvReac Type Severity Reaction Status Date / Time apple Allergy Unknown Itching Verified 08/31/21 23:48 strawberry Allergy Unknown Itching Verified 08/31/21 23:48 Assessment & Plan Assessment & Plan (1) Cocaine use disorder, moderate, dependence: Status: Acute Code(s): F14.20 - Cocaine dependence, uncomplicated (2) Psychosis: Status: Acute Code(s): F29 - Unspecified psychosis not due to a substance or known physiological condition Assessment and Plan: Ms. Kovacs is a 25 year-old woman who was brought to [facility] ED after she presented as disorganized, confused, responding to internal stimuli. Hx of cocaine but utox neg in ED. This is her first psychotic episode 09/09 continues to present as disorganized, anterograde amnesia. reports AH of brother and good memories. pacing, not sleeping well. PLAN 1. continue haldol 5mg po BID (switched from olanzapine due to minimal efficacy) 2. continue ativan 1mg po TID 3. Started depakote 500mg po BID 4. coordination of care 5. safety- 15 minutes checks. I spent minutes with the patient and/or on the patient floor today, greater than?50% of which was spent counseling/coordinating care. Reason for contiued inpatient stay Substantial Risk for: inability to function
[2021-09-10 21:00] VITALS: BP 119/65; PULSE 97; RESP 20; TEMP 36; O2SAT 100
[2021-09-10] MEDS: traZODone HCL 100 MG TABLET PO (21:12)
[2021-09-10] MEDS: Acetaminophen 325 MG TABLET 650 MG PO (21:12)
[2021-09-11] MEDS: traZODone HCL 100 MG TABLET PO ×2 (02:27→21:37)
[2021-09-11 08:08] VITALS: BP 129/58; PULSE 94; RESP 16; TEMP 36.4; O2SAT 99
[2021-09-11] MEDS: Divalproex Sodium 500 MG TABLET.DR PO ×2 (08:35→21:36)
[2021-09-11] MEDS: HaloperidoL 5 MG TABLET PO ×2 (08:35→21:37)
[2021-09-11] MEDS: Metoprolol Tartrate 25 MG TABLET PO ×2 (08:35→21:36)
[2021-09-11] MEDS: Acetaminophen 325 MG TABLET 650 MG PO (08:35)
[2021-09-11] MEDS: Throat Lozenge, Medicated LOZENGE 1 LOZENGE MUCOUS MEM (08:35)
[2021-09-11] MEDS: LORazepam 1 MG TABLET PO ×3 (08:51→21:36)
--- NOTE | 2021-09-11 17:06 | HO.PSYCHPN ---
Subjective Subjective Date of Service: 09/11/21 Reason For Visit: Palpitations Interim History: pt up and about the unit today, observed playing cards with peer. amenable to meet with MD. states she is doing amazing. great. why? 16 o'clock. and more of the same. no complaints or requests for MD. per staff, ativan was held last night to see if she would sleep better without it? isaiah, instigating peer. at 0200 got trazodone, slept until 0630. again ativan held this morning. disruptive without ativan. reporting 3/10 anxiety. denies depression. c/o AH: good AH. yelling into rooms, pouring water down hallway. Mental Status Exam Mental Status Exam Narrative: dressed in [facility]. adequately groomed. no PMA/PMR evident. cooperative. speech nml in amount, rate, loudness, latency. thoughts disorganized. affect flexible, normo-intense. mood amazing. great. no SI/HI/AVH expressed. Diagnostics Vital Signs (24Hr): Vital Signs - 24 hr 09/10/21 21:00 09/11/21 08:08 Temperature 96.8 F 97.6 F Pulse Rate 97 94 Respiratory Rate 20 16 Blood Pressure 119/65 129/58 L Pulse Oximetry 100 99 BMI result Body Mass Index 21.7 Labs Results: 09/09/21 08:23 09/09/21 08:23 Labs: Laboratory Results - last 48 hr 09/08/21 14:23 GHULAM Screen NEGATIVE GHULAM Titer TNP GHULAM Titer 2 TNP GHULAM Titer 3 TNP GHULAM Pattern TNP GHULAM Pattern 2 TNP GHULAM Pattern 3 TNP Imaging Radiology Impressions: ITS Impressions Pelvic/Transvag US 09/07/21 09:41 IMPRESSION: IUD in the uterus in satisfactory position. Small complex left ovarian cyst probably representing a physiologic cyst. Medications Medications Current Medications Acetaminophen (Acetaminophen 325 Mg Tablet) 650 mg PO Q6H PRN PRN Reason: Headache/Pain Mild Scale (1-3) Last Admin: 09/11/21 08:35 Dose: 650 mg Documented by: Al Hydroxide/Mg Hydroxide (Magnesium Hydrox/Alum Hydrox 30 Ml Oral.Susp) 30 ml PO Q6H PRN PRN Reason: Heartburn/Nausea Last Admin: 09/10/21 19:41 Dose: 30 ml Documented by: Benzocaine (Throat Lozenge, Medicated Lozenge) 1 lozenge MUCOUS MEM Q2H PRN PRN Reason: Sore Throat Last Admin: 09/11/21 08:35 Dose: 1 lozenge Documented by: Benztropine Mesylate (Benztropine Mesylate 1 Mg Tablet) 1 mg PO Q8H PRN PRN Reason: Extrapyramidal Effects Divalproex Sodium (Divalproex Sodium 500 Mg Tablet.Dr) 500 mg PO BID [facility] Last Admin: 09/11/21 08:35 Dose: 500 mg Documented by: Haloperidol (Haloperidol 5 Mg Tablet) 5 mg PO BID [facility] Last Admin: 09/11/21 08:35 Dose: 5 mg Documented by: Hydroxyzine HCl (Hydroxyzine Hcl 25 Mg Tablet) 25 mg PO BEDTIME PRN PRN Reason: Anxiety Last Admin: 09/09/21 22:49 Dose: 25 mg Documented by: Lorazepam (Lorazepam 1 Mg Tablet) 1 mg PO TID [facility] Last Admin: 09/11/21 16:43 Dose: 1 mg Documented by: Magnesium Hydroxide (Milk Of Magnesia 30 Ml Oral.Susp) 30 ml PO DAILY PRN PRN Reason: Constipation Metoprolol Tartrate (Metoprolol Tartrate 25 Mg Tablet) 25 mg PO BID [facility]; Protocol Last Admin: 09/11/21 08:35 Dose: 25 mg Documented by: Nicotine Polacrilex (Nicotine Polacrilex 2 Mg Gum) 2 mg BUCCAL Q2H PRN PRN Reason: Nicotine Cravings Olanzapine (Olanzapine Odt 10 Mg Tab.Rapdis) 10 mg TRANSLINGU Q6H PRN PRN Reason: agitation Last Admin: 09/08/21 05:17 Dose: 10 mg Documented by: Trazodone HCl (Trazodone Hcl 100 Mg Tablet) 100 mg PO BEDTIME [facility] Last Admin: 09/10/21 21:12 Dose: 100 mg Documented by: Trazodone HCl (Trazodone Hcl 100 Mg Tablet) 100 mg PO BEDTIME PRN PRN Reason: sleep Last Admin: 09/11/21 02:27 Dose: 100 mg Documented by: Allergies Allergies Allergy/AdvReac Type Severity Reaction Status Date / Time apple Allergy Unknown Itching Verified 08/31/21 23:48 strawberry Allergy Unknown Itching Verified 08/31/21 23:48 Assessment & Plan Assessment & Plan (1) Cocaine use disorder, moderate, dependence: Status: Acute Code(s): F14.20 - Cocaine dependence, uncomplicated (2) Psychosis: Status: Acute Code(s): F29 - Unspecified psychosis not due to a substance or known physiological condition Assessment and Plan: Ms. Kovacs is a 25 year-old woman who was brought to [facility] ED after she presented as disorganized, confused, responding to internal stimuli. Hx of cocaine but utox neg in ED. This is her first psychotic episode 09/09 continues to present as disorganized, anterograde amnesia. reports AH of brother and good memories. pacing, not sleeping well. PLAN 1. continue haldol 5mg po BID (switched from olanzapine due to minimal efficacy) 2. continue ativan 1mg po TID 3. Started depakote 500mg po BID 4. coordination of care 5. safety- 15 minutes checks. I spent minutes with the patient and/or on the patient floor today, greater than?50% of which was spent counseling/coordinating care. Reason for contiued inpatient stay Substantial Risk for: inability to function
[2021-09-11 21:31] VITALS: BP 103/60; PULSE 95; RESP 18; TEMP 36.8; O2SAT 100
[2021-09-12 08:17] VITALS: BP 111/66; PULSE 94; RESP 15; TEMP 36.7; O2SAT 98
[2021-09-12] MEDS: HaloperidoL 5 MG TABLET PO ×3 (08:28→22:41)
[2021-09-12] MEDS: LORazepam 1 MG TABLET PO ×3 (08:28→22:39)
[2021-09-12] MEDS: Metoprolol Tartrate 25 MG TABLET PO ×2 (08:28→22:42)
[2021-09-12] MEDS: Divalproex Sodium 500 MG TABLET.DR PO ×2 (08:28→22:40)
[2021-09-12 09:43] LABS: Ammonia 43 umol/L (13-55)
--- NOTE | 2021-09-12 14:29 | P.PNPSI_ITS ---
Subjective Subjective Date of Service: 09/12/21 Reason For Visit: Palpitations Subjective Notes: Conditional Voluntary Interim History: Pt in room resting. Pt reports she had great weekend, when asked to elaborate, pt reports I can't remember much. Pt had reported to SW that she went to over the weekend, when asked she reports she did not remember that. She reports she is great. denies SI/HI. She continues to present as disorganized, later holding case pillow with feces. She is intrusive, thought process disorganized, incoherent, anterograde memory, difficulty retaining most information. Medication Compliance: Intermittent Side effects from medications: No Review of Systems Review of Systems Yes Unobtainable due to mental status Constitutional: Reports no additional constitutional complaints and Denies le thargy Eyes: Reports no additional eye complaints Reports system reviewed and no additional complaints, except as documented and Denies dizziness Cardiovascular: Reports chest pain, Denies chest pain at rest, Denies chest pain with activity, Reports rapid heart rate, Reports claudication (left), Denies leg edema, Denies lightheadedness, Denies Loss of Consciousness and Denies dyspnea Respiratory: Reports no additional respiratory complaints and Denies dyspnea Gastrointestinal: Reports no additional gastrointestinal complaints, Denies constipation and Denies diarrhea Musculoskeletal: Reports no additional musculoskeletal complaints and Denies tingling Skin/Breast: Reports system reviewed and no additional complaints, except as docu Reports system reviewed and no additional complaints, except as documented, Denies dizziness, Denies memory loss and Denies tingling Psychiatric: Reports no additional psychiatric complaints and Denies memory loss Endocrine: Reports no additional endocrine complaints Hematologic/Lymphatic: Reports no additional hematologic/lymphatic complaints Mental Status Exam Mental Status Exam Narrative: Narrative:?Appearance: casually groomed, fair hygiene in NAD Behavior:pleasantly disoriented psychomotor:pacing, walking down the faust Speech:clear, regular rate, rhythm, spontaneous Thought process:disorganized Thought content:feeling great, Mood: great Affect: constricted SI:denies HI:denies VH/AH:reports hearing voices of brothers when they are not physically present nor talking with them over the phone Delusions:thinks she is Insight/judgment:impaired x 2. Memory/cog: alert, not oriented to month, nor situation, impaired secondary to psychiatric symptoms. Diagnostics Vital Signs (24Hr): Vital Signs - 24 hr 09/11/21 21:31 09/12/21 08:17 Temperature 98.2 F 98.1 F Pulse Rate 95 94 Respiratory Rate 18 15 Blood Pressure 103/60 111/66 Pulse Oximetry 100 98 BMI result Body Mass Index 21.7 Labs Results: 09/09/21 08:23 09/09/21 08:23 Labs: Laboratory Results - last 48 hr 09/08/21 09/12/21 14:23 09:25 Ammonia 43 GHULAM Titer TNP GHULAM Titer 2 TNP GHULAM Titer 3 TNP GHULAM Pattern TNP GHULAM Pattern 2 TNP GHULAM Pattern 3 TNP Imaging Radiology Impressions: ITS Impressions Pelvic/Transvag US 09/07/21 09:41 IMPRESSION: IUD in the uterus in satisfactory position. Small complex left ovarian cyst probably representing a physiologic cyst. Medications Medications Current Medications Acetaminophen (Acetaminophen 325 Mg Tablet) 650 mg PO Q6H PRN PRN Reason: Headache/Pain Mild Scale (1-3) Last Admin: 09/11/21 08:35 Dose: 650 mg Documented by: Al Hydroxide/Mg Hydroxide (Magnesium Hydrox/Alum Hydrox 30 Ml Oral.Susp) 30 ml PO Q6H PRN PRN Reason: Heartburn/Nausea Last Admin: 09/10/21 19:41 Dose: 30 ml Documented by: Benzocaine (Throat Lozenge, Medicated Lozenge) 1 lozenge MUCOUS MEM Q2H PRN PRN Reason: Sore Throat Last Admin: 09/11/21 08:35 Dose: 1 lozenge Documented by: Benztropine Mesylate (Benztropine Mesylate 1 Mg Tablet) 1 mg PO Q8H PRN PRN Reason: Extrapyramidal Effects Divalproex Sodium (Divalproex Sodium 500 Mg Tablet.) 500 mg PO BID [facility] Last Admin: 09/12/21 08:28 Dose: 500 mg Documented by: Haloperidol (Haloperidol 5 Mg Tablet) 5 mg PO BID [facility] Last Admin: 09/12/21 08:28 Dose: 5 mg Documented by: Hydroxyzine HCl (Hydroxyzine Hcl 25 Mg Tablet) 25 mg PO BEDTIME PRN PRN Reason: Anxiety Last Admin: 09/09/21 22:49 Dose: 25 mg Documented by: Lorazepam (Lorazepam 1 Mg Tablet) 1 mg PO TID [facility] Last Admin: 09/12/21 08:28 Dose: 1 mg Documented by: Magnesium Hydroxide (Milk Of Magnesia 30 Ml Oral.Susp) 30 ml PO DAILY PRN PRN Reason: Constipation Metoprolol Tartrate (Metoprolol Tartrate 25 Mg Tablet) 25 mg PO BID PHI; Protocol Last Admin: 09/12/21 08:28 Dose: 25 mg Documented by: Nicotine Polacrilex (Nicotine Polacrilex 2 Mg Gum) 2 mg BUCCAL Q2H PRN PRN Reason: Nicotine Cravings Olanzapine (Olanzapine Odt 10 Mg Tab.Rapdis) 10 mg TRANSLINGU Q6H PRN PRN Reason: agitation Last Admin: 09/08/21 05:17 Dose: 10 mg Documented by: Trazodone HCl (Trazodone Hcl 100 Mg Tablet) 100 mg PO BEDTIME PHI Last Admin: 09/11/21 21:37 Dose: 100 mg Documented by: Trazodone HCl (Trazodone Hcl 100 Mg Tablet) 100 mg PO BEDTIME PRN PRN Reason: sleep Last Admin: 09/11/21 02:27 Dose: 100 mg Documented by: Allergies Allergies Allergy/AdvReac Type Severity Reaction Status Date / Time apple Allergy Unknown Itching Verified 08/31/21 23:48 strawberry Allergy Unknown Itching Verified 08/31/21 23:48 Assessment & Plan Assessment & Plan (1) Cocaine use disorder, moderate, dependence: Status: Acute Code(s): F14.20 - Cocaine dependence, uncomplicated (2) Psychosis: Status: Acute Code(s): F29 - Unspecified psychosis not due to a substance or known physiological condition Assessment and Plan: Ms. Kovacs is a 25 year-old woman who was brought to [facility] [place] ED after she presented as disorganized, confused, responding to internal stimuli. Hx of cocaine but utox neg in ED. This is her first psychotic episode 09/09 continues to present as disorganized, anterograde amnesia. reports AH of brother and good memories. pacing, not sleeping well. PLAN 1. INcrease haldol 5mg po TID(switched from olanzapine due to minimal efficacy) 2. continue ativan 1mg po TID 3. depakote 500mg po BID- may switched to lithium 4. coordination of care 5. safety- 15 minutes checks. 6. additional medical work up- GHULAM neg, EEG unremarkable, ammonia 40 on 09/12, I spent minutes with the patient and/or on the patient floor today, greater than?50% of which was spent counseling/coordinating care. Reason for contiued inpatient stay Substantial Risk for: inability to function
--- NOTE | 2021-09-12 15:56 | PC.NURSE ---
Patient is observed disrobing at times in the hallway and needing redirection. Patient observed to be swinging pillow case around while pushing on a stair way door. When asked what was in it pt. stated A pile of shit . Upon opening the pillow case this RN observed human feces with toilet paper inside the pillow case.
[2021-09-12 18:00] VITALS: BP 110/60; PULSE 92; RESP 16; TEMP 36.8; O2SAT 98
[2021-09-12] MEDS: traZODone HCL 100 MG TABLET PO (22:39)
[2021-09-13 09:20] VITALS: BP 107/60; PULSE 87; RESP 18; TEMP 36.5; O2SAT 100
[2021-09-13] MEDS: HaloperidoL 5 MG TABLET PO ×3 (09:21→22:12)
[2021-09-13] MEDS: Metoprolol Tartrate 25 MG TABLET PO (09:21)
[2021-09-13] MEDS: Divalproex Sodium 500 MG TABLET.DR PO ×2 (09:21→22:11)
[2021-09-13] MEDS: LORazepam 1 MG TABLET PO ×3 (09:21→22:10)
--- NOTE | 2021-09-13 14:38 | HO.PSYCHPN ---
Subjective Subjective Date of Service: 09/13/21 Reason For Visit: Palpitations Subjective Notes: Conditional Voluntary Interim History: Pt reports she is okay. Pt reports she does not know why she is in psychological unit. She reports not remembering much about events leading to admission. Pt earlier calling father, did tell him to pick her up. She reports it is 2020, but reports it is September. She oriented to [facility]. She denies SI/HI. continues on 1:1 due to disorganized behavior, needing redirection. Medication Compliance: Yes Side effects from medications: No Attending Groups: No Review of Systems Acute medical concerns: No Review of Systems Review of Systems Yes Unobtainable due to mental status Constitutional: Reports no additional constitutional complaints and Denies lethargy Eyes: Reports no additional eye complaints Reports system reviewed and no additional complaints, except as documented and Denies dizziness Cardiovascular: Reports chest pain, Denies chest pain at rest, Denies chest pain with activity, Reports rapid heart rate, Reports claudication (left), Denies leg edema, Denies lightheadedness, Denies Loss of Consciousness and Denies dyspnea Respiratory: Reports no additional respiratory complaints and Denies dyspnea Gastrointestinal: Reports no additional gastrointestinal complaints, Denies constipation and Denies diarrhea Musculoskeletal: Reports no additional musculoskeletal complaints and Denies tingling Skin/Breast: Reports system reviewed and no additional complaints, except as docu Reports system reviewed and no additional complaints, except as documented, Denies dizziness, Denies memory loss and Denies tingling Psychiatric: Reports no additional psychiatric complaints and Denies memory loss Endocrine: Reports no additional endocrine complaints Hematologic/Lymphatic: Reports no additional hematologic/lymphatic complaints Mental Status Exam Mental Status Exam Narrative: Narrative:?Appearance: casually groomed, fair hygiene in NAD Behavior:pleasantly disoriented psychomotor:pacing, walking down the faust Speech:clear, regular rate, rhythm, spontaneous Thought process:disorganized Thought content:feeling great, Mood: great Affect: constricted SI:denies HI:denies VH/AH:reports hearing voices of brothers when they are not physically present nor talking with them over the phone Delusions:thinks she is Insight/judgment:impaired x 2. Memory/cog: alert, not oriented to month, nor situation, impaired secondary to psychiatric symptoms. Diagnostics Vital Signs (24Hr): Vital Signs - 24 hr 09/12/21 18:00 09/13/21 09:20 Temperature 98.2 F 97.7 F Pulse Rate 92 87 Respiratory Rate 16 18 Blood Pressure 110/60 107/60 Pulse Oximetry 98 100 BMI result Body Mass Index 21.7 Labs Results: 09/09/21 08:23 09/09/21 08:23 Labs: Laboratory Results - last 48 hr 09/12/21 09:25 Ammonia 43 Imaging Radiology Impressions: ITS Impressions Pelvic/Transvag US 09/07/21 09:41 IMPRESSION: IUD in the uterus in satisfactory position. Small complex left ovarian cyst probably representing a physiologic cyst. Medications Medications Current Medications Acetaminophen (Acetaminophen 325 Mg Tablet) 650 mg PO Q6H PRN PRN Reason: Headache/Pain Mild Scale (1-3) Last Admin: 09/11/21 08:35 Dose: 650 mg Documented by: Al Hydroxide/Mg Hydroxide (Magnesium Hydrox/Alum Hydrox 30 Ml Oral.Susp) 30 ml PO Q6H PRN PRN Reason: Heartburn/Nausea Last Admin: 09/10/21 19:41 Dose: 30 ml Documented by: Benzocaine (Throat Lozenge, Medicated Lozenge) 1 lozenge MUCOUS MEM Q2H PRN PRN Reason: Sore Throat Last Admin: 09/11/21 08:35 Dose: 1 lozenge Documented by: Benztropine Mesylate (Benztropine Mesylate 1 Mg Tablet) 1 mg PO Q8H PRN PRN Reason: Extrapyramidal Effects Divalproex Sodium (Divalproex Sodium 500 Mg Tablet.Dr) 500 mg PO BID [facility] Last Admin: 09/13/21 09:21 Dose: 500 mg Documented by: Haloperidol (Haloperidol 5 Mg Tablet) 5 mg PO TID [facility] Last Admin: 09/13/21 09:21 Dose: 5 mg Documented by: Hydroxyzine HCl (Hydroxyzine Hcl 25 Mg Tablet) 25 mg PO BEDTIME PRN PRN Reason: Anxiety Last Admin: 09/09/21 22:49 Dose: 25 mg Documented by: Lorazepam (Lorazepam 1 Mg Tablet) 1 mg PO TID [facility] Last Admin: 09/13/21 09:21 Dose: 1 mg Documented by: Magnesium Hydroxide (Milk Of Magnesia 30 Ml Oral.Susp) 30 ml PO DAILY PRN PRN Reason: Constipation Metoprolol Tartrate (Metoprolol Tartrate 25 Mg Tablet) 25 mg PO BID [facility]; Protocol Last Admin: 09/13/21 09:21 Dose: 25 mg Documented by: Nicotine Polacrilex (Nicotine Polacrilex 2 Mg Gum) 2 mg BUCCAL Q2H PRN PRN Reason: Nicotine Cravings Olanzapine (Olanzapine Odt 10 Mg Tab.Rapdis) 10 mg TRANSLINGU Q6H PRN PRN Reason: agitation Last Admin: 09/08/21 05:17 Dose: 10 mg Documented by: Trazodone HCl (Trazodone Hcl 100 Mg Tablet) 100 mg PO BEDTIME PHI Last Admin: 09/12/21 22:39 Dose: 100 mg Documented by: Trazodone HCl (Trazodone Hcl 100 Mg Tablet) 100 mg PO BEDTIME PRN PRN Reason: sleep Last Admin: 09/11/21 02:27 Dose: 100 mg Documented by: Allergies Allergies Allergy/AdvReac Type Severity Reaction Status Date / Time apple Allergy Unknown Itching Verified 08/31/21 23:48 strawberry Allergy Unknown Itching Verified 08/31/21 23:48 Assessment & Plan Assessment & Plan (1) Cocaine use disorder, moderate, dependence: Status: Acute Code(s): F14.20 - Cocaine dependence, uncomplicated (2) Psychosis: Status: Acute Code(s): F29 - Unspecified psychosis not due to a substance or known physiological condition Assessment and Plan: Ms. Kvoacs is a 25 year-old woman who was brought to [facility] [place] ED after she presented as disorganized, confused, responding to internal stimuli. Hx of cocaine but utox neg in ED. This is her first psychotic episode 09/09 continues to present as disorganized, anterograde amnesia. reports AH of brother and good memories. pacing, not sleeping well. PLAN 1. Continue haldol 5mg po TID(switched from olanzapine due to minimal efficacy) 2. continue ativan 1mg po TID 3. depakote 500mg po BID- may switched to lithium 4. coordination of care 5. safety- 15 minutes checks. 6. additional medical work up- GHULAM neg, EEG unremarkable, ammonia 40 on 09/12, I spent minutes with the patient and/or on the patient floor today, greater than?50% of which was spent counseling/coordinating care. Reason for contiued inpatient stay Substantial Risk for: inability to function
[2021-09-13 22:08] VITALS: BP 106/55; PULSE 75; TEMP 36.6; O2SAT 97
[2021-09-13] MEDS: traZODone HCL 100 MG TABLET PO (22:11)
[2021-09-14 08:38] VITALS: BP 124/71; PULSE 102; RESP 16; TEMP 36.8; O2SAT 100
[2021-09-14] MEDS: HaloperidoL 5 MG TABLET PO (08:53)
[2021-09-14] MEDS: LORazepam 1 MG TABLET PO ×3 (08:53→21:13)
[2021-09-14] MEDS: Divalproex Sodium 500 MG TABLET.DR PO ×2 (08:53→21:13)
[2021-09-14] MEDS: Metoprolol Tartrate 25 MG TABLET PO (08:53)
[2021-09-14] MEDS: diphenhydrAMINE HCL 50 MG/ML VIAL IM (09:40)
--- NOTE | 2021-09-14 10:11 | P.PNPSI_ITS ---
Subjective Subjective Date of Service: 09/14/21 Reason For Visit: Palpitations Subjective Notes: Conditional Voluntary Interim History: Pt appears more organized today, reports she remembers buying presents on Aug 26, she does recall she had moved back to parents house few days prior to and that she was living with her boyfriend. She does report thinking that her father was not her real father when police called and she was brought to hospital. She was surprised when she heard that she has been reporting being as she states I have an IUD. She did know that today is Sep 14 and that it is 2021. She reports feeling a bit tired but doing better. She denies SI/HI. She seemed to have some dystonic s/e, given benadryl 50mg IM, rested. haldol decrease to 5mg po BID and cogentin added. Medication Compliance: Yes Side effects from medications: No Attending Groups: No Review of Systems Review of Systems Yes Unobtainable due to mental status Constitutional: Reports no additional constitutional complaints and Denies lethargy Eyes: Reports no additional eye complaints Reports system reviewed and no additional complaints, except as documented and Denies dizziness Cardiovascular: Reports chest pain, Denies chest pain at rest, Denies chest pain with activity, Reports rapid heart rate, Reports claudication (left), Denies leg edema, Denies lightheadedness, Denies Loss of Consciousness and Denies dyspnea Respiratory: Reports no additional respiratory complaints and Denies dyspnea Gastrointestinal: Reports no additional gastrointestinal complaints, Denies constipation and Denies diarrhea Musculoskeletal: Reports no additional musculoskeletal complaints and Denies tingling Skin/Breast: Reports system reviewed and no additional complaints, except as docu Reports system reviewed and no additional complaints, except as documented, Denies dizziness, Denies memory loss and Denies tingling Psychiatric: Reports no additional psychiatric complaints and Denies memory loss Endocrine: Reports no additional endocrine complaints Hematologic/Lymphatic: Reports no additional hematologic/lymphatic complaints Mental Status Exam Mental Status Exam Narrative: Narrative:?Appearance: casually groomed, fair hygiene in NAD Behavior:cooperative psychomotor:less restless Speech:clear, regular rate, rhythm, spontaneous Thought process:more organized and coherent Thought content:surprise about past delusions Mood: tired Affect: constricted SI:denies HI:denies VH/AH:less AH/VH Delusions: no overt delusional but still confused as to why she is here. Insight/judgment:impaired x 2. Memory/cog: alert, not oriented to month, nor situation, impaired secondary to psychiatric symptoms. Diagnostics Vital Signs (24Hr): Vital Signs - 24 hr 09/13/21 22:08 09/14/21 08:38 Temperature 97.8 F 98.2 F Pulse Rate 75 102 H Respiratory Rate 16 Blood Pressure 106/55 L 124/71 Pulse Oximetry 97 100 BMI result Body Mass Index 21.7 Labs Results: 09/09/21 08:23 09/09/21 08:23 Imaging Radiology Impressions: ITS Impressions Pelvic/Transvag US 09/07/21 09:41 IMPRESSION: IUD in the uterus in satisfactory position. Small complex left ovarian cyst probably representing a physiologic cyst. Medications Medications Current Medications Acetaminophen (Acetaminophen 325 Mg Tablet) 650 mg PO Q6H PRN PRN Reason: Headache/Pain Mild Scale (1-3) Last Admin: 09/11/21 08:35 Dose: 650 mg Documented by: Al Hydroxide/Mg Hydroxide (Magnesium Hydrox/Alum Hydrox 30 Ml Oral.Susp) 30 ml PO Q6H PRN PRN Reason: Heartburn/Nausea Last Admin: 09/10/21 19:41 Dose: 30 ml Documented by: Benzocaine (Throat Lozenge, Medicated Lozenge) 1 lozenge MUCOUS MEM Q2H PRN PRN Reason: Sore Throat Last Admin: 09/11/21 08:35 Dose: 1 lozenge Documented by: Benztropine Mesylate (Benztropine Mesylate 1 Mg Tablet) 1 mg PO BID [facility] Divalproex Sodium (Divalproex Sodium 500 Mg Tablet.Dr) 500 mg PO BID [facility] Last Admin: 09/14/21 08:53 Dose: 500 mg Documented by: Haloperidol (Haloperidol 5 Mg Tablet) 5 mg PO BID [facility] Hydroxyzine HCl (Hydroxyzine Hcl 25 Mg Tablet) 25 mg PO BEDTIME PRN PRN Reason: Anxiety Last Admin: 09/09/21 22:49 Dose: 25 mg Documented by: Lorazepam (Lorazepam 1 Mg Tablet) 1 mg PO TID [facility] Last Admin: 09/14/21 08:53 Dose: 1 mg Documented by: Magnesium Hydroxide (Milk Of Magnesia 30 Ml Oral.Susp) 30 ml PO DAILY PRN PRN Reason: Constipation Metoprolol Tartrate (Metoprolol Tartrate 25 Mg Tablet) 25 mg PO BID PHI; Protocol Last Admin: 09/14/21 08:53 Dose: 25 mg Documented by: Nicotine Polacrilex (Nicotine Polacrilex 2 Mg Gum) 2 mg BUCCAL Q2H PRN PRN Reason: Nicotine Cravings Olanzapine (Olanzapine Odt 10 Mg Tab.Rapdis) 10 mg TRANSLINGU Q6H PRN PRN Reason: agitation Last Admin: 09/08/21 05:17 Dose: 10 mg Documented by: Trazodone HCl (Trazodone Hcl 100 Mg Tablet) 100 mg PO BEDTIME PHI Last Admin: 09/13/21 22:11 Dose: 100 mg Documented by: Trazodone HCl (Trazodone Hcl 100 Mg Tablet) 100 mg PO BEDTIME PRN PRN Reason: sleep Last Admin: 09/11/21 02:27 Dose: 100 mg Documented by: Allergies Allergies Allergy/AdvReac Type Severity Reaction Status Date / Time apple Allergy Unknown Itching Verified 08/31/21 23:48 strawberry Allergy Unknown Itching Verified 08/31/21 23:48 Assessment & Plan Assessment & Plan (1) Cocaine use disorder, moderate, dependence: Status: Acute Code(s): F14.20 - Cocaine dependence, uncomplicated (2) Psychosis: Status: Acute Code(s): F29 - Unspecified psychosis not due to a substance or known physiological condition Assessment and Plan: Ms. Kovacs is a 25 year-old woman who was brought to [facility] [place] ED after she prese nted as disorganized, confused, responding to internal stimuli. Hx of cocaine but utox neg in ED. This is her first psychotic episode 09/09 continues to present as disorganized, anterograde amnesia. reports AH of brother and good memories. pacing, not sleeping well. PLAN 1. decrease haldol 5mg po BID added cogentin for dystonia (switched from olanzapine due to minimal efficacy) 2. continue ativan 1mg po TID 3. depakote 500mg po BID 4. coordination of care 5. safety- 15 minutes checks. 6. additional medical work up- GHULAM neg, EEG unremarkable, ammonia 40 on 09/12, I spent minutes with the patient and/or on the patient floor today, greater than?50% of which was spent counseling/coordinating care. Reason for contiued inpatient stay Substantial Risk for: inability to function
[2021-09-14 21:00] VITALS: BP 91/50; PULSE 94; TEMP 36.8; O2SAT 98
[2021-09-14] MEDS: traZODone HCL 100 MG TABLET PO (21:13)
[2021-09-14] MEDS: Benztropine Mesylate 1 MG TABLET PO (21:13)
--- NOTE | 2021-09-15 00:44 | PC.NURSE ---
HS haldol 09/14/21 was held as patient is c/o tight jaw and tongue appears thick. given cogentin, patient also reported that her jaw was causing her to have a headache but declined offer of tylenol.
[2021-09-15 09:00] VITALS: BP 105/65; PULSE 85; RESP 16; TEMP 36.8; O2SAT 98
[2021-09-15] MEDS: Divalproex Sodium 500 MG TABLET.DR PO ×2 (09:46→21:17)
[2021-09-15] MEDS: LORazepam 1 MG TABLET PO ×3 (09:46→21:17)
[2021-09-15] MEDS: Metoprolol Tartrate 25 MG TABLET PO ×2 (09:46→21:16)
[2021-09-15] MEDS: HaloperidoL 5 MG TABLET PO (09:46)
[2021-09-15] MEDS: Benztropine Mesylate 1 MG TABLET PO ×2 (09:47→21:17)
--- NOTE | 2021-09-15 10:55 | HO.PSYCHPN ---
Subjective Subjective Date of Service: 09/15/21 Reason For Visit: Palpitations Subjective Notes: Conditional Voluntary Interim History: Pt much more coherent, reports having little recollection of what happen prior to admission and during admission. Pt reports she had moved with parents as she was arguing with BF constantly, not sure if she will continue with boyfriend. She reports having good relationship with parents. She denies use of cocaine recently, does not think it was a problem and denies that her BF uses cocaine as reported by her parents. She reports sleeping better. No SI/HI. Pt had dystonia with haldol, held last night- will switch to risperidone. Medication Compliance: Yes Side effects from medications: Yes Review of Systems Acute medical concerns: No Review of Systems Review of Systems Yes Unobtainable due to mental status Constitutional: Reports no additional constitutional complaints and Denies lethargy Eyes: Reports no additional eye complaints Reports system reviewed and no additional complaints, except as documented and Denies dizziness Cardiovascular: Reports chest pain, Denies chest pain at rest, Denies chest pain with activity, Reports rapid heart rate, Reports claudication (left), Denies leg edema, Denies lightheadedness, Denies Loss of Consciousness and Denies dyspnea Respiratory: Reports no additional respiratory complaints and Denies dyspnea Gastrointestinal: Reports no additional gastrointestinal complaints, Denies constipation and Denies diarrhea Musculoskeletal: Reports no additional musculoskeletal complaints and Denies tingling Skin/Breast: Reports system reviewed and no additional complaints, except as docu Reports system reviewed and no additional complaints, except as documented, Denies dizziness, Denies memory loss and Denies tingling Psychiatric: Reports no additional psychiatric complaints and Denies memory loss Endocrine: Reports no additional endocrine complaints Hematologic/Lymphatic: Reports no additional hematologic/lymphatic complaints Mental Status Exam Mental Status Exam Narrative: Narrative:?Appearance: casually groomed, fair hygiene in NAD Behavior:cooperative psychomotor:less restless Speech:clear, regular rate, rhythm, spontaneous Thought process:more organized and coherent Thought content:surprise about past delusions Mood: tired Affect: constricted SI:denies HI:denies VH/AH:less AH/VH Delusions: no overt delusional but still confused as to why she is here. Insight/judgment:impaired x 2. Memory/cog: alert, not oriented to month, nor situation, impaired secondary to psychiatric symptoms. Diagnostics Vital Signs (24Hr): Vital Signs - 24 hr 09/15/21 09:00 09/15/21 18:00 Temperature 98.3 F 98.2 F Pulse Rate 85 85 Respiratory Rate 16 Blood Pressure 105/65 107/62 Pulse Oximetry 98 BMI result Body Mass Index 21.7 Labs Results: 09/09/21 08:23 09/09/21 08:23 Imaging Radiology Impressions: ITS Impressions Pelvic/Transvag US 09/07/21 09:41 IMPRESSION: IUD in the uterus in satisfactory position. Small complex left ovarian cyst probably representing a physiologic cyst. Medications Medications Current Medications Acetaminophen (Acetaminophen 325 Mg Tablet) 650 mg PO Q6H PRN PRN Reason: Headache/Pain Mild Scale (1-3) Last Admin: 09/11/21 08:35 Dose: 650 mg Documented by: Al Hydroxide/Mg Hydroxide (Magnesium Hydrox/Alum Hydrox 30 Ml Oral.Susp) 30 ml PO Q6H PRN PRN Reason: Heartburn/Nausea Last Admin: 09/10/21 19:41 Dose: 30 ml Documented by: Benzocaine (Throat Lozenge, Medicated Lozenge) 1 lozenge MUCOUS MEM Q2H PRN PRN Reason: Sore Throat Last Admin: 09/11/21 08:35 Dose: 1 lozenge Documented by: Benztropine Mesylate (Benztropine Mesylate 1 Mg Tablet) 1 mg PO BID REPLACED BY [facility] Last Admin: 09/15/21 21:17 Dose: 1 mg Documented by: Divalproex Sodium (Divalproex Sodium 500 Mg Tablet.Dr) 500 mg PO BID REPLACED BY [facility] Last Admin: 09/15/21 21:17 Dose: 500 mg Documented by: Hydroxyzine HCl (Hydroxyzine Hcl 25 Mg Tablet) 25 mg PO BEDTIME PRN PRN Reason: Anxiety Last Admin: 09/09/21 22:49 Dose: 25 mg Documented by: Lorazepam (Lorazepam 1 Mg Tablet) 1 mg PO TID REPLACED BY [facility] Last Admin: 09/15/21 21:17 Dose: 1 mg Documented by: Magnesium Hydroxide (Milk Of Magnesia 30 Ml Oral.Susp) 30 ml PO DAILY PRN PRN Reason: Constipation Metoprolol Tartrate (Metoprolol Tartrate 25 Mg Tablet) 25 mg PO BID REPLACED BY [facility]; Protocol Last Admin: 09/15/21 21:16 Dose: 25 mg Documented by: Nicotine Polacrilex (Nicotine Polacrilex 2 Mg Gum) 2 mg BUCCAL Q2H PRN PRN Reason: Nicotine Cravings Olanzapine (Olanzapine Odt 10 Mg Tab.Rapdis) 10 mg TRANSLINGU Q6H PRN PRN Reason: agitation Last Admin: 09/08/21 05:17 Dose: 10 mg Documented by: Risperidone (Risperidone 1 Mg Tablet) 1 mg PO BID REPLACED BY [facility] Last Admin: 09/15/21 21:17 Dose: 1 mg Documented by: Trazodone HCl (Trazodone Hcl 100 Mg Tablet) 100 mg PO BEDTIME REPLACED BY [facility] Last Admin: 09/15/21 21:17 Dose: 100 mg Documented by: Trazodone HCl (Trazodone Hcl 100 Mg Tablet) 100 mg PO BEDTIME PRN PRN Reason: sleep Last Admin: 09/11/21 02:27 Dose: 100 mg Documented by: Allergies Allergies Allergy/AdvReac Type Severity Reaction Status Date / Time apple Allergy Unknown Itching Verified 08/31/21 23:48 strawberry Allergy Unknown Itching Verified 08/31/21 23:48 Assessment & Plan Assessment & Plan (1) Cocaine use disorder, moderate, dependence: Status: Acute Code(s): F14.20 - Cocaine dependence, uncomplicated (2) Psychosis: Status: Acute Code(s): F29 - Unspecified psychosis not due to a substance or known physiological condition Assessment and Plan: Ms. Kovacs is a 25 year-old woman who was brought to [facility] [place] ED after she presented as disorganized, confused, responding to internal stimuli. Hx of cocaine but utox neg in ED. This is her first psychotic episode 09/09 continues to present as disorganized, anterograde amnesia. reports AH of brother and good memories. pacing, not sleeping well. PLAN 1. switched haldol to risperidone 1mg po BID due to dystonia 2. continue ativan 1mg po TID- may decrease now that pt much more organized 3. depakote 500mg po BID 4. coordination of care 5. safety- 15 minutes checks. 6. additional medical work up- GHULAM neg, EEG unremarkable, ammonia 40 on 09/12, I spent minutes with the patient and/or on the patient floor today, greater than?50% of which was spent counseling/coordinating care. Reason for contiued inpatient stay Substantial Risk for: inability to function
[2021-09-15 18:00] VITALS: BP 107/62; PULSE 85; TEMP 36.8
[2021-09-15] MEDS: traZODone HCL 100 MG TABLET PO (21:17)
[2021-09-15] MEDS: risperiDONE 1 MG TABLET PO (21:17)
[2021-09-16 08:26] VITALS: BP 101/64; PULSE 81; RESP 15; TEMP 36.8; O2SAT 96
[2021-09-16] MEDS: Benztropine Mesylate 1 MG TABLET PO ×2 (08:50→22:35)
[2021-09-16] MEDS: risperiDONE 1 MG TABLET PO ×2 (08:50→22:35)
[2021-09-16] MEDS: Metoprolol Tartrate 25 MG TABLET PO ×2 (08:50→22:36)
[2021-09-16] MEDS: LORazepam 0.5 MG TABLET PO ×3 (08:51→22:35)
[2021-09-16] MEDS: Divalproex Sodium 500 MG TABLET.DR PO ×2 (08:51→22:35)
--- NOTE | 2021-09-16 14:40 | P.PNPSI_ITS ---
Subjective Subjective Date of Service: 09/16/21 Reason For Visit: Palpitations Interim History: pt seen lying in bed. she is easily rousable and alert and attentive. she states she has no questions or complaints for MD. she reports she continues to feel better. per staff, eating well. isolative, withdrawn. no AH. no anx/dep. h/o dystonia on haldol. visible, attended art group eves. social. slept through the night. Mental Status Exam Mental Status Exam Narrative: [facility]. adequately groomed. no PMA/PMR evident. cooperative. speech nml in amount, rate, loudness, latency. thoughts linear and logical. affect flexible, normo-intense, non-labile. no SI/HI/AVH expressed. Diagnostics Vital Signs (24Hr): Vital Signs - 24 hr 09/15/21 18:00 09/16/21 08:26 Temperature 98.2 F 98.3 F Pulse Rate 85 81 Respiratory Rate 15 Blood Pressure 107/62 101/64 Pulse Oximetry 96 BMI result Body Mass Index 21.7 Labs Results: 09/09/21 08:23 09/09/21 08:23 Imaging Radiology Impressions: ITS Impressions Pelvic/Transvag US 09/07/21 09:41 IMPRESSION: IUD in the uterus in satisfactory position. Small complex left ovarian cyst probably representing a physiologic cyst. Medications Medications Current Medications Acetaminophen (Acetaminophen 325 Mg Tablet) 650 mg PO Q6H PRN PRN Reason: Headache/Pain Mild Scale (1-3) Last Admin: 09/11/21 08:35 Dose: 650 mg Documented by: Al Hydroxide/Mg Hydroxide (Magnesium Hydrox/Alum Hydrox 30 Ml Oral.Susp) 30 ml PO Q6H PRN PRN Reason: Heartburn/Nausea Last Admin: 09/10/21 19:41 Dose: 30 ml Documented by: Benzocaine (Throat Lozenge, Medicated Lozenge) 1 lozenge MUCOUS MEM Q2H PRN PRN Reason: Sore Throat Last Admin: 09/11/21 08:35 Dose: 1 lozenge Documented by: Benztropine Mesylate (Benztropine Mesylate 1 Mg Tablet) 1 mg PO BID [facility] Last Admin: 09/16/21 08:50 Dose: 1 mg Documented by: Divalproex Sodium (Divalproex Sodium 500 Mg Tablet.) 500 mg PO BID [facility] Last Admin: 09/16/21 08:51 Dose: 500 mg Documented by: Hydroxyzine HCl (Hydroxyzine Hcl 25 Mg Tablet) 25 mg PO BEDTIME PRN PRN Reason: Anxiety Last Admin: 09/09/21 22:49 Dose: 25 mg Documented by: Lorazepam (Lorazepam 0.5 Mg Tablet) 0.5 mg PO TID [facility] Last Admin: 09/16/21 08:51 Dose: 0.5 mg Documented by: Magnesium Hydroxide (Milk Of Magnesia 30 Ml Oral.Susp) 30 ml PO DAILY PRN PRN Reason: Constipation Metoprolol Tartrate (Metoprolol Tartrate 25 Mg Tablet) 25 mg PO BID [facility]; Protocol Last Admin: 09/16/21 08:50 Dose: 25 mg Documented by: Nicotine Polacrilex (Nicotine Polacrilex 2 Mg Gum) 2 mg BUCCAL Q2H PRN PRN Reason: Nicotine Cravings Olanzapine (Olanzapine Odt 10 Mg Tab.Rapdis) 10 mg TRANSLINGU Q6H PRN PRN Reason: agitation Last Admin: 09/08/21 05:17 Dose: 10 mg Documented by: Risperidone (Risperidone 1 Mg Tablet) 1 mg PO BID [facility] Last Admin: 09/16/21 08:50 Dose: 1 mg Documented by: Trazodone HCl (Trazodone Hcl 100 Mg Tablet) 100 mg PO BEDTIME [facility] Last Admin: 09/15/21 21:17 Dose: 100 mg Documented by: Trazodone HCl (Trazodone Hcl 100 Mg Tablet) 100 mg PO BEDTIME PRN PRN Reason: sleep Last Admin: 09/11/21 02:27 Dose: 100 mg Documented by: Allergies Allergies Allergy/AdvReac Type Severity Reaction Status Date / Time apple Allergy Unknown Itching Verified 08/31/21 23:48 strawberry Allergy Unknown Itching Verified 08/31/21 23:48 Assessment & Plan Assessment & Plan (1) Cocaine use disorder, moderate, dependence: Status: Acute Code(s): F14.20 - Cocaine dependence, uncomplicated (2) Psychosis: Status: Acute Code(s): F29 - Unspecified psychosis not due to a substance or known physiological condition Assessment and Plan: Ms. Kovacs is a 25 year-old woman who was brought to [facility] [place] [place] ED after she presented as disorganized, confused, responding to internal stimuli. Hx of cocaine but utox neg in ED. This is her first psychotic episode 09/09 continues to present as disorganized, anterograde amnesia. reports AH of brother and good memories. pacing, not sleeping well. much more organized as of 09/15. PLAN 1. switched haldol to risperidone 1mg po BID due to dystonia 2. continue ativan 1mg po TID- may decrease now that pt much more organized 3. depakote 500mg po BID 4. coordination of care 5. safety- 15 minutes checks. 6. additional medical work up- GHULAM neg, EEG unremarkable, ammonia 40 on 09/12 I spent minutes with the patient and/or on the patient floor today, greater than?50% of which was spent counseling/coordinating care. Reason for contiued inpatient stay Substantial Risk for: inability to function and rapid decompensation
[2021-09-16 22:20] VITALS: BP 116/60; PULSE 83; TEMP 36.9; O2SAT 100
[2021-09-16] MEDS: traZODone HCL 100 MG TABLET PO (22:36)
[2021-09-17 08:00] VITALS: BP 134/77; PULSE 118; TEMP 36.5; O2SAT 99
--- NOTE | 2021-09-17 08:13 | P.PNPSI_ITS ---
Subjective Subjective Date of Service: 09/17/21 Reason For Visit: Palpitations Subjective Notes: Conditional Voluntary Interim History: Patient was seen and discussed in rounds. Records and labs were reviewed. She was seen in her room and was laying comfortably in bed. She states that she is doing better. She also feels that the Risperdal is working better with no side effects or movements. She has generally been isolative, guarded. No SI. At times a little confused. Anxiety and depression have decreased. Eating and sleeping adequately. No changes were made today Review of Systems Review of Systems Yes Unobtainable due to mental status Constitutional: Reports no additional constitutional complaints and Denies lethargy Eyes: Reports no additional eye complaints Reports system reviewed and no additional complaints, except as documented and Denies dizziness Cardiovascular: Reports chest pain, Denies chest pain at rest, Denies chest pain with activity, Reports rapid heart rate, Reports claudication (left), Denies leg edema, Denies lightheadedness, Denies Loss of Consciousness and Denies dyspnea Respiratory: Reports no additional respiratory complaints and Denies dyspnea Gastrointestinal: Reports no additional gastrointestinal complaints, Denies constipation and Denies diarrhea Musculoskeletal: Reports no additional musculoskeletal complaints and Denies tingling Skin/Breast: Reports system reviewed and no additional complaints, except as docu Reports system reviewed and no additional complaints, except as documented, Denies dizziness, Denies memory loss and Denies tingling Psychiatric: Reports no additional psychiatric complaints and Denies memory loss Endocrine: Reports no additional endocrine complaints Hematologic/Lymphatic: Reports no additional hematologic/lymphatic complaints Diagnostics Vital Signs (24Hr): Vital Signs - 24 hr 09/16/21 08:26 09/16/21 22:20 Temperature 98.3 F 98.4 F Pulse Rate 81 83 Respiratory Rate 15 Blood Pressure 101/64 116/60 Pulse Oximetry 96 100 BMI result Body Mass Index 21.7 Labs Results: 09/09/21 08:23 09/09/21 08:23 Imaging Radiology Impressions: ITS Impressions Pelvic/Transvag US 09/07/21 09:41 IMPRESSION: IUD in the uterus in satisfactory position. Small complex left ovarian cyst probably representing a physiologic cyst. Medications Medications Current Medications Acetaminophen (Acetaminophen 325 Mg Tablet) 650 mg PO Q6H PRN PRN Reason: Headache/Pain Mild Scale (1-3) Last Admin: 09/11/21 08:35 Dose: 650 mg Documented by: Al Hydroxide/Mg Hydroxide (Magnesium Hydrox/Alum Hydrox 30 Ml Oral.Susp) 30 ml PO Q6H PRN PRN Reason: Heartburn/Nausea Last Admin: 09/10/21 19:41 Dose: 30 ml Documented by: Benzocaine (Throat Lozenge, Medicated Lozenge) 1 lozenge MUCOUS MEM Q2H PRN PRN Reason: Sore Throat Last Admin: 09/11/21 08:35 Dose: 1 lozenge Documented by: Benztropine Mesylate (Benztropine Mesylate 1 Mg Tablet) 1 mg PO BID [facility] Last Admin: 09/16/21 22:35 Dose: 1 mg Documented by: Divalproex Sodium (Divalproex Sodium 500 Mg Tablet.Dr) 500 mg PO BID [facility] Last Admin: 09/16/21 22:35 Dose: 500 mg Documented by: Hydroxyzine HCl (Hydroxyzine Hcl 25 Mg Tablet) 25 mg PO BEDTIME PRN PRN Reason: Anxiety Last Admin: 09/09/21 22:49 Dose: 25 mg Documented by: Lorazepam (Lorazepam 0.5 Mg Tablet) 0.5 mg PO TID [facility] Last Admin: 09/16/21 22:35 Dose: 0.5 mg Documented by: Magnesium Hydroxide (Milk Of Magnesia 30 Ml Oral.Susp) 30 ml PO DAILY PRN PRN Reason: Constipation Metoprolol Tartrate (Metoprolol Tartrate 25 Mg Tablet) 25 mg PO BID [facility]; Protocol Last Admin: 09/16/21 22:36 Dose: 25 mg Documented by: Nicotine Polacrilex (Nicotine Polacrilex 2 Mg Gum) 2 mg BUCCAL Q2H PRN PRN Reason: Nicotine Cravings Olanzapine (Olanzapine Odt 10 Mg Tab.Rapdis) 10 mg TRANSLINGU Q6H PRN PRN Reason: agitation Last Admin: 09/08/21 05:17 Dose: 10 mg Documented by: Risperidone (Risperidone 1 Mg Tablet) 1 mg PO BID [facility] Last Admin: 09/16/21 22:35 Dose: 1 mg Documented by: Trazodone HCl (Trazodone Hcl 100 Mg Tablet) 100 mg PO BEDTIME [facility] Last Admin: 09/16/21 22:36 Dose: 100 mg Documented by: Trazodone HCl (Trazodone Hcl 100 Mg Tablet) 100 mg PO BEDTIME PRN PRN Reason: sleep Last Admin: 09/11/21 02:27 Dose: 100 mg Documented by: Allergies Allergies Allergy/AdvReac Type Severity Reaction Status Date / Time apple Allergy Unknown Itching Verified 08/31/21 23:48 strawberry Allergy Unknown Itching Verified 08/31/21 23:48 Assessment & Plan Assessment & Plan (1) Cocaine use disorder, moderate, dependence: Status: Acute Code(s): F14.20 - Cocaine dependence, uncomplicated (2) Psychosis: Status: Acute Code(s): F29 - Unspecified psychosis not due to a substance or known physiological condition Assessment and Plan: Ms. Kovacs is a 25 year-old woman who was brought to [facility] [place] ED after she presented as disorganized, confused, responding to internal stimuli. Hx of cocaine but utox neg in ED. This is her first psychotic episode 09/09 continues to present as disorganized, anterograde amnesia. reports AH of brother and good memories. pacing, not sleeping well. much more organized as of 09/15. PLAN 1. switched haldol to risperidone 1mg po BID due to dystonia 2. continue ativan 1mg po TID- may decrease now that pt much more organized 3. depakote 500mg po BID 4. coordination of care 5. safety- 15 minutes checks. 6. additional medical work up- GHULAM neg, EEG unremarkable, ammonia 40 on 09/1209/17/2021 Continue current regimen and plans I spent minutes with the patient and/or on the patient floor today, greater than?50% of which was spent counseling/coordinating care. Reason for contiued inpatient stay Substantial Risk for: other
[2021-09-17] MEDS: Divalproex Sodium 500 MG TABLET.DR PO ×2 (11:03→21:25)
[2021-09-17] MEDS: LORazepam 0.5 MG TABLET PO ×3 (11:03→21:18)
[2021-09-17] MEDS: risperiDONE 1 MG TABLET PO ×2 (11:03→21:25)
[2021-09-17] MEDS: Metoprolol Tartrate 25 MG TABLET PO ×2 (11:03→21:25)
[2021-09-17] MEDS: Benztropine Mesylate 1 MG TABLET PO ×2 (11:03→21:18)
[2021-09-17] MEDS: Acetaminophen 325 MG TABLET 650 MG PO (17:26)
[2021-09-17 21:20] VITALS: BP 122/75; PULSE 84; RESP 18; TEMP 36.6; O2SAT 100
[2021-09-17] MEDS: Throat Lozenge, Medicated LOZENGE 1 LOZENGE MUCOUS MEM (21:25)
[2021-09-17] MEDS: traZODone HCL 100 MG TABLET PO (21:25)
[2021-09-17] MEDS: Ibuprofen 600 MG TABLET PO (22:27)
--- NOTE | 2021-09-18 08:29 | HO.PSYCHPN ---
Subjective Subjective Date of Service: 09/18/21 Reason For Visit: Palpitations Subjective Notes: Conditional Voluntary Medical Problems Affecting Mental Status: No Interim History: Patient was seen and discussed in rounds today. Records were reviewed. She home has been doing better, is more organized. She has been social. Affect is markedly improved. No hallucinations reported. She has been having some TMJ pain and eventually Motrin was helpful and was able to sleep. No side effects. No changes were made today Medication Compliance: Yes Side effects from medications: No Review of Systems Review of Systems TMJ pain Yes Unobtainable due to mental status Constitutional: Reports no additional constitutional complaints Eyes: Reports no additional eye complaints Reports system reviewed and no additional complaints, except as documented Cardiovascular: Denies leg edema, Denies lightheadedness, Denies Loss of Consciousness and Denies dyspnea Respiratory: Reports no additional respiratory complaints and Denies dyspnea Gastrointestinal: Reports no additional gastrointestinal complaints, Denies constipation and Denies diarrhea Musculoskeletal: Reports no additional musculoskeletal complaints and Denies tingling Skin/Breast: Reports system reviewed and no additional complaints, except as docu Reports system reviewed and no additional complaints, except as documented, Denies memory loss and Denies tingling Psychiatric: Reports no additional psychiatric complaints and Denies memory loss Endocrine: Reports no additional endocrine complaints Hematologic/Lymphatic: Reports no additional hematologic/lymphatic complaints Mental Status Exam Mental Status Exam Narrative: In today's examination patient was seen in her room. She is alert, oriented and pleasant. Normal speech. Good eye contact. Affect is appropriate and varied. No cognitive deficits. No SI. No signs of psychosis. Judgment is intact Diagnostics Vital Signs (24Hr): Vital Signs - 24 hr 09/17/21 21:20 Temperature 98 F Pulse Rate 84 Respiratory Rate 18 Blood Pressure 122/75 Pulse Oximetry 100 BMI result Body Mass Index 21.7 Labs Results: 09/09/21 08:23 09/09/21 08:23 Imaging Radiology Impressions: ITS Impressions Pelvic/Transvag US 09/07/21 09:41 IMPRESSION: IUD in the uterus in satisfactory position. Small complex left ovarian cyst probably representing a physiologic cyst. Medications Medications Current Medications Acetaminophen (Acetaminophen 325 Mg Tablet) 650 mg PO Q6H PRN PRN Reason: Headache/Pain Mild Scale (1-3) Last Admin: 09/17/21 17:26 Dose: 650 mg Documented by: Al Hydroxide/Mg Hydroxide (Magnesium Hydrox/Alum Hydrox 30 Ml Oral.Susp) 30 ml PO Q6H PRN PRN Reason: Heartburn/Nausea Last Admin: 09/10/21 19:41 Dose: 30 ml Documented by: Benzocaine (Throat Lozenge, Medicated Lozenge) 1 lozenge MUCOUS MEM Q2H PRN PRN Reason: Sore Throat Last Admin: 09/17/21 21:25 Dose: 1 lozenge Documented by: Benztropine Mesylate (Benztropine Mesylate 1 Mg Tablet) 1 mg PO BID [facility] Last Admin: 09/17/21 21:18 Dose: 1 mg Documented by: Divalproex Sodium (Divalproex Sodium 500 Mg Tablet.Dr) 500 mg PO BID [facility] Last Admin: 09/17/21 21:25 Dose: 500 mg Documented by: Hydroxyzine HCl (Hydroxyzine Hcl 25 Mg Tablet) 25 mg PO BEDTIME PRN PRN Reason: Anxiety Last Admin: 09/09/21 22:49 Dose: 25 mg Documented by: Ibuprofen (Ibuprofen 600 Mg Tablet) 600 mg PO BID PRN PRN Reason: Pain, Moderate (Pain Scale 4-6 Last Admin: 09/17/21 22:27 Dose: 600 mg Documented by: Lorazepam (Lorazepam 0.5 Mg Tablet) 0.5 mg PO TID [facility] Last Admin: 09/17/21 21:18 Dose: 0.5 mg Documented by: Magnesium Hydroxide (Milk Of Magnesia 30 Ml Oral.Susp) 30 ml PO DAILY PRN PRN Reason: Constipation Metoprolol Tartrate (Metoprolol Tartrate 25 Mg Tablet) 25 mg PO BID [facility]; Protocol Last Admin: 09/17/21 21:25 Dose: 25 mg Documented by: Nicotine Polacrilex (Nicotine Polacrilex 2 Mg Gum) 2 mg BUCCAL Q2H PRN PRN Reason: Nicotine Cravings Olanzapine (Olanzapine Odt 10 Mg Tab.Rapdis) 10 mg TRANSLINGU Q6H PRN PRN Reason: agitation Last Admin: 09/08/21 05:17 Dose: 10 mg Documented by: Risperidone (Risperidone 1 Mg Tablet) 1 mg PO BID [facility] Last Admin: 09/17/21 21:25 Dose: 1 mg Documented by: Trazodone HCl (Trazodone Hcl 100 Mg Tablet) 100 mg PO BEDTIME [facility] Last Admin: 09/17/21 21:25 Dose: 100 mg Documented by: Trazodone HCl (Trazodone Hcl 100 Mg Tablet) 100 mg PO BEDTIME PRN PRN Reason: sleep Last Admin: 09/11/21 02:27 Dose: 100 mg Documented by: Allergies Allergies Allergy/AdvReac Type Severity Reaction Status Date / Time apple Allergy Unknown Itching Verified 08/31/21 23:48 strawberry Allergy Unknown Itching Verified 08/31/21 23:48 Assessment & Plan Assessment & Plan (1) Cocaine use disorder, moderate, dependence: Status: Acute Code(s): F14.20 - Cocaine dependence, uncomplicated (2) Psychosis: Status: Acute Code(s): F29 - Unspecified psychosis not due to a substance or known physiological condition Assessment and Plan: Ms. Kovacs is a 25 year-old woman who was brought to [facility] [place] after she presented as disorganized, confused, responding to internal stimuli. Hx of cocaine but utox neg in ED. This is her first psychotic episode 09/09 continues to present as disorganized, anterograde amnesia. reports AH of brother and good memories. pacing, not sleeping well. much more organized as of 09/15. PLAN 1. switched haldol to risperidone 1mg po BID due to dystonia 2. continue ativan 1mg po TID- may decrease now that pt much more organized 3. depakote 500mg po BID 4. coordination of care 5. safety- 15 minutes checks. 6. additional medical work up- GHULAM neg, EEG unremarkable, ammonia 40 on 09/1209/17/2021 Continue current regimen and plans 09/17/2021 Continue current plans and regimen. No changes were made today I spent minutes with the patient and/or on the patient floor today, greater than?50% of which was spent counseling/coordinating care. Reason for contiued inpatient stay Substantial Risk for: other
[2021-09-18 09:00] VITALS: BP 130/74; PULSE 75; TEMP 36.6; O2SAT 100
[2021-09-18] MEDS: Metoprolol Tartrate 25 MG TABLET PO ×2 (09:35→23:19)
[2021-09-18] MEDS: LORazepam 0.5 MG TABLET PO ×3 (09:35→23:20)
[2021-09-18] MEDS: Divalproex Sodium 500 MG TABLET.DR PO ×2 (09:35→23:20)
[2021-09-18] MEDS: Benztropine Mesylate 1 MG TABLET PO ×2 (09:35→23:20)
[2021-09-18] MEDS: risperiDONE 1 MG TABLET PO ×2 (09:35→23:19)
[2021-09-18] MEDS: traZODone HCL 100 MG TABLET PO (23:20)
[2021-09-18 23:21] VITALS: BP 121/72; PULSE 102; TEMP 36.6; O2SAT 99
--- NOTE | 2021-09-19 10:08 | P.PNPSI_ITS ---
Subjective Subjective Date of Service: 09/19/21 Reason For Visit: Palpitations Subjective Notes: Conditional Voluntary Interim History: Pt much clear in that she reports she thought many things were happening that were not real, such as thinking that her father was not her father nor that she was . She reports less racing thoughts, being able to concentrate better. She reports sleeping and eating well. She denies SI/HI. She is looking forward for discharge soon, hoping to continue psychiatric treatment. Medication Compliance: Yes Side effects from medications: No Attending Groups: Yes Review of Systems Review of Systems TMJ pain Yes Unobtainable due to mental status Constitutional: Reports no additional constitutional complaints and Denies lethargy Eyes: Reports no additional eye complaints Reports system reviewed and no additional complaints, except as documented and Denies dizziness Cardiovascular: Reports chest pain, Denies chest pain at rest, Denies chest pain with activity, Reports rapid heart rate, Reports claudication (left), Denies leg edema, Denies lightheadedness, Denies Loss of Consciousness and Denies dyspnea Respiratory: Reports no additional respiratory complaints and Denies dyspnea Gastrointestinal: Reports no additional gastrointestinal complaints, Denies constipation and Denies diarrhea Musculoskeletal: Reports no additional musculoskeletal complaints and Denies tingling Skin/Breast: Reports system reviewed and no additional complaints, except as docu Reports system reviewed and no additional complaints, except as documented, Denies dizziness, Denies memory loss and Denies tingling Psychiatric: Reports no additional psychiatric complaints and Denies memory loss Endocrine: Reports no additional endocrine complaints Hematologic/Lymphatic: Reports no additional hematologic/lymphatic complaints Mental Status Exam Mental Status Exam Narrative: Narrative:Appearance: casually groomed, improved hygiene in NAD Behavior:cooperative psychomotor: no agitation or retardation noted Speech:clear, regular rate, rhythm, spontaneous Thought process:more organized and coherent Thought content:surprise about past delusions, looking forward to return home Mood: better Affect: brighter, no labile SI:denies HI:denies VH/AH:none Delusions: none Insight/judgment:improving x 2. Memory/cog: alert, not oriented to month, nor situation, impaired secondary to psychiatric symptoms. Diagnostics Vital Signs (24Hr): Vital Signs - 24 hr 09/18/21 23:21 09/19/21 10:22 Temperature 97.9 F 97.9 F Pulse Rate 102 H 75 Respiratory Rate 16 Blood Pressure 121/72 93/45 L Pulse Oximetry 99 96 BMI result Body Mass Index 21.7 Labs Results: 09/09/21 08:23 09/09/21 08:23 Imaging Radiology Impressions: ITS Impressions Pelvic/Transvag US 09/07/21 09:41 IMPRESSION: IUD in the uterus in satisfactory position. Small complex left ovarian cyst probably representing a physiologic cyst. Medications Medications Current Medications Acetaminophen (Acetaminophen 325 Mg Tablet) 650 mg PO Q6H PRN PRN Reason: Headache/Pain Mild Scale (1-3) Last Admin: 09/17/21 17:26 Dose: 650 mg Documented by: Al Hydroxide/Mg Hydroxide (Magnesium Hydrox/Alum Hydrox 30 Ml Oral.Susp) 30 ml PO Q6H PRN PRN Reason: Heartburn/Nausea Last Admin: 09/10/21 19:41 Dose: 30 ml Documented by: Benzocaine (Throat Lozenge, Medicated Lozenge) 1 lozenge MUCOUS MEM Q2H PRN PRN Reason: Sore Throat Last Admin: 09/17/21 21:25 Dose: 1 lozenge Documented by: Benztropine Mesylate (Benztropine Mesylate 1 Mg Tablet) 1 mg PO BID [facility] Last Admin: 09/19/21 10:16 Dose: 1 mg Documented by: Divalproex Sodium (Divalproex Sodium 500 Mg Tablet.Dr) 500 mg PO BID [facility] Last Admin: 09/19/21 10:17 Dose: 500 mg Documented by: Hydroxyzine HCl (Hydroxyzine Hcl 25 Mg Tablet) 25 mg PO BEDTIME PRN PRN Reason: Anxiety Last Admin: 09/09/21 22:49 Dose: 25 mg Documented by: Ibuprofen (Ibuprofen 600 Mg Tablet) 600 mg PO BID PRN PRN Reason: Pain, Moderate (Pain Scale 4-6 Last Admin: 09/17/21 22:27 Dose: 600 mg Documented by: Lorazepam (Lorazepam 0.5 Mg Tablet) 0.5 mg PO BID [facility] Magnesium Hydroxide (Milk Of Magnesia 30 Ml Oral.Susp) 30 ml PO DAILY PRN PRN Reason: Constipation Metoprolol Tartrate (Metoprolol Tartrate 25 Mg Tablet) 25 mg PO BID [facility]; Protocol Last Admin: 09/19/21 10:18 Dose: Not Given Documented by: Nicotine Polacrilex (Nicotine Polacrilex 2 Mg Gum) 2 mg BUCCAL Q2H PRN PRN Reason: Nicotine Cravings Olanzapine (Olanzapine Odt 10 Mg Tab.Rapdis) 10 mg TRANSLINGU Q6H PRN PRN Reason: agitation Last Admin: 09/08/21 05:17 Dose: 10 mg Documented by: Risperidone (Risperidone 1 Mg Tablet) 1 mg PO BID [facility] Last Admin: 09/19/21 10:17 Dose: 1 mg Documented by: Trazodone HCl (Trazodone Hcl 100 Mg Tablet) 100 mg PO BEDTIME [facility] Last Admin: 09/18/21 23:20 Dose: 100 mg Documented by: Trazodone HCl (Trazodone Hcl 100 Mg Tablet) 100 mg PO BEDTIME PRN PRN Reason: sleep Last Admin: 09/11/21 02:27 Dose: 100 mg Documented by: Allergies Allergies Allergy/AdvReac Type Severity Reaction Status Date / Time apple Allergy Unknown Itching Verified 08/31/21 23:48 strawberry Allergy Unknown Itching Verified 08/31/21 23:48 Assessment & Plan Assessment & Plan (1) Cocaine use disorder, moderate, dependence: Status: Acute Code(s): F14.20 - Cocaine dependence, uncomplicated (2) Psychosis: Status: Acute Code(s): F29 - Unspecified psychosis not due to a substance or known physiological condition Assessment and Plan: Ms. Kovacs is a 25 year-old woman who was brought to [facility] ED after she presented as disorganized, confused, responding to internal stimuli. Hx of cocaine but utox neg in ED. This is her first psychotic episode 09/09 continues to present as disorganized, anterograde amnesia. reports AH of brother and good memories. pacing, not sleeping well. much more organized as of 09/15. PLAN 1. switched haldol to risperidone 1mg po BID due to dystonia 2. decrease ativan 0.5mg po BID- may decrease now that pt much more organized 3. depakote 500mg po BID 4. coordination of care 5. safety- 15 minutes checks. 6. additional medical work up- GHULAM neg, EEG unremarkable, ammonia 40 on 09/1209/17/2021 Continue current regimen and plans 09/17/2021 Continue current plans and regimen. No changes were made today I spent minutes with the patient and/or on the patient floor today, greater than?50% of which was spent counseling/coordinating care. Reason for contiued inpatient stay Substantial Risk for: inability to function
[2021-09-19] MEDS: Benztropine Mesylate 1 MG TABLET PO ×2 (10:16→23:20)
[2021-09-19] MEDS: risperiDONE 1 MG TABLET PO ×2 (10:17→23:20)
[2021-09-19] MEDS: Divalproex Sodium 500 MG TABLET.DR PO ×2 (10:17→23:20)
[2021-09-19] MEDS: LORazepam 0.5 MG TABLET PO ×2 (10:17→23:20)
[2021-09-19 10:22] VITALS: BP 93/45; PULSE 75; RESP 16; TEMP 36.6; O2SAT 96
[2021-09-19] MEDS: Ibuprofen 600 MG TABLET PO (19:31)
[2021-09-19] MEDS: traZODone HCL 100 MG TABLET PO (23:21)
[2021-09-19 23:23] VITALS: BP 97/54; PULSE 91; TEMP 36.7; O2SAT 100
[2021-09-20] MEDS: LORazepam 0.5 MG TABLET PO (09:22)
[2021-09-20] MEDS: Divalproex Sodium 500 MG TABLET.DR PO (09:22)
[2021-09-20] MEDS: risperiDONE 1 MG TABLET PO (09:22)
[2021-09-20] MEDS: Benztropine Mesylate 1 MG TABLET PO (09:22)
[2021-09-20] MEDS: Metoprolol Tartrate 25 MG TABLET PO (09:22)
[2021-09-20 09:35] VITALS: BP 108/66; PULSE 85; TEMP 36.6; O2SAT 100
--- NOTE | 2021-09-20 12:33 | PM.PSYDC ---
DS: Providers Provider Date of Service: 09/20/21 Date of admission: 08/31/21 20:53 Primary care physician: Unknown Physician Attending physician on admission: Guillermo Fletcher Consults: 08/31/21 21:32 Consult to Hospitalist Routine Consulting Provider: Hospitalist Reason For Exam: direct admit 09/08/21 12:37 Consult to Cardiology Stat Consulting Provider: Salvador Beavers Reason for consultation: palpitation, tachycardia, abnormal ekg Has provider been notified: Yes Attending physician on discharge: Guillermo Fletcher DS: Diagnosis Discharge Diagnosis (1) Cocaine use disorder, moderate, dependence: Status: Acute (2) Psychosis: Status: Acute DS: Medications Discharge Medications Home Medications: Home Medications Medication Instructions Recorded Confirmed albuterol sulfate 90 mcg/actuation 2 puff INHALATION QID PRN 08/31/21 08/31/21 aerosol inhaler (ProAir HFA) Previous Rx's Medication Instructions Recorded benztropine 1 mg tablet 1 mg PO BID #60 tab 09/20/21 divalproex 500 mg tablet,delayed 500 mg PO BID #60 tab 09/20/21 release ibuprofen 600 mg tablet 800 mg PO Q6H PRN #60 tab 09/20/21 metoprolol tartrate 25 mg tablet 25 mg PO BID #60 tab 09/20/21 risperidone 1 mg tablet 1 mg PO BID #60 tab 09/20/21 trazodone 100 mg tablet 100 mg PO BEDTIME #30 tab 09/20/21 Mental Status Exam Mental Status Exam Narrative: Narrative:Appearance: casually groomed, improved hygiene in NAD Behavior:cooperative psychomotor: no agitation or retardation noted Speech:clear, regular rate, rhythm, spontaneous Thought process:more organized and coherent Thought content:surprise about past delusions, looking forward to return home Mood: better Affect: brighter, no labile SI:denies HI:denies VH/AH:none Delusions: none Insight/judgment:improving x 2. Memory/cog: alert, not oriented to month, nor situation, impaired secondary to psychiatric symptoms. Data Data Completed and Pending Completed studies during hospitalization [Text1]: 09/20/21 08:29 Valproic Acid 67.0 Imaging Diagnostic Imaging Impressions Pelvic/Transvag US 09/07/21 09:41 IMPRESSION: IUD in the uterus in satisfactory position. Small complex left ovarian cyst probably representing a physiologic cyst. DS: Summary Hospital Course Hospital Course: Subjective Notes: Fuchs Warning and Conditional Voluntary Narrative: Ms. Mccoy is a 25 year-old woman with hx of cocaine use who was [place] [facility] [place] due to bizarre behaviors, confusion, appeared responding to internal stimuli. Pt was brought by EMS called by bystander after pt denied knowing her father as father was trying to bring her to her aunt for dinner. In the ED, her utox was positive for canabinoids. Pt had head CT, which did not show any acute pathology. Pt presents as poor historian given psychosis and disorganized behavior and most information gathered from medical records and her parents with whom I spoke after meeting with patient. On the unit, pt has been entering other patient's room, intrusive to other pts, non purposeless behaviors (grabbing things from others), talking to someone who is not there, poor attention and psychomotor agitation. Pt was given olanzapine 10mg po and ativan 1mg po with fair effect in that later patient presented slightly more organized and able to provide slightly more information in somewhat coherent manner. Pt reports she does not remember events leading to this admission nor why she is here in hospital. Pt reports using cocaine but unable to provide information as to amount or when was last time as her utox was negative for cocaine. Pt reports hearing voices but not understanding what they say. She states I hear echoing. Pt denies SI/HI. Pt noted to have poverty of thought or some degree of thought blocking, which parents report not her baseline as she works in [employer] and is outgoing . Pt reports leg pain on left side. Pt denies chest pain. She reports poor sleep. She is unable to report if she had similar episodes in the past. Per parents, pt was living with boyfriend up until 4 days before Riley when she return to her parent's house. Parents note that she was asking them if they were talking when no one had talked. Parents report that patient was very suspicious, trying to leave house without clear purpose. Pt was not sleep nor eating well. Father reports he was about to bring pt to her aunts house for dinner but pt was running, bystanders call police as pt reported he was not her father, they thought father was trying to hurt her. Both parents report pt has been using cocaine on and off but unknown amount or last use. 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 Parents denied prior hx of psychosis. Past Psychiatric History: Inpatient: none OP: none Past medication trials: none Suicide attempts: pt denies, family denied Medical Evaluation Reviewed: Hospitalist Cherelle [place] [facility] [place] cmp wnl. head CT unremarkable for acute pathology. HOSPITAL COURSE Ms. Mccoy was admitted on a CV and placed on 5 minutes checks for safety initially as pt presented as very disorganized. Pt was not able to tell coherent story of events leading to this admission. Her thought process was very disorganized. She reported that her father was not her real father, she thought she was . She did not sleep more than few hours for several days. Pt also presented with anterograde amnesia, needing constant orientation as to month, year and situation. After discussing risks, benefits and alternative treatment options, pt was initially started on olanzapine, which was titrated to 20mg po daily. She did not show significant improvement on this medication, therefore, it was switched to haldol. She showed improvement with haldol in that pt presented more organized, conversations were more logical. However, she experienced dystonia. Haldol was switched to risperidone, which she tolerated well and was effective treating psychosis and delusions. As pt improved she reported she thought her father was impostor and she was being persecuted by someone. She did not remember much and was surprised when she heard about her behavior and statements related to being . She knew she has a IUD. She also reported that she knew her father was her real father. She showed appropriate concern in terms of etiology of this psychotic episode. This is the first time pt has episode of psychosis. She denied using cocaine regularly or at all in past year or so. She reported working at [employer] and enjoying her work very much. We discussed possibility of sign of either a bipolar disorder or schizoaffective disorder. She agreed to continue OP psychiatric treatment to further clarify diagnosis and ongoing need for treatment. She denied SI/HI. She was sleeping and eating well. Collateral information gathered from her parents who report patient appears in much improved condition and denied any safety concerns at time of discharge. Pt agreed to return to her parents' house. Incidental finding of small complex cyst on left ovary- pt recommended to follow up with her ENGINEERING ANALYST/OB on discharge. This could cause abdominal cramping which pt had on and off. Status at Discharge Cognitive/behavioral status at discharge: Pt presents with bright but non labile affect. Thought process is linear and organized. No signs of psychosis. No SI/HI. No signs of aggression towards self or others. Functional status at discharge: independent ambulation Overall status at discharge: patient is progressing back to baseline Time Spent with Patient Time attestation: Total time spent providing and/or coordinating discharge services: Time spent: Greater than 30 minutes Discharge Plan Discharge Patient Disposition: Home, Self-Care Discharge Diagnosis: Psychosis, rule out Bipolar Disorder vs substance induced Referrals: Chase Gallagher (Therapy) [Other] - 09/20/21 2:00 pm (Telehealth Appointment Please check your email for the link. ) Jennifer Pendleton (Psychiatry) [Other] - 10/20/21 11:00 am (Telehealth Appointment Please check your email for the link. ) Jennifer Pendleton (Psychiatry) [Other] - 11/11/21 9:00 am (Telehealth Appointment Please check your email for the link. ) [facility] [Outside] - 10/07/21 8:30 am (in-person visit) [facility] [Physician] - 1 Week Discharge Medications: New divalproex 500 mg Tablet,Delayed Release (Dr/Ec) 500 mg PO BID Qty: 60 0RF trazodone 100 mg Tablet 100 mg PO BEDTIME Qty: 30 0RF benztropine 1 mg Tablet 1 mg PO BID Qty: 60 0RF ibuprofen 600 mg Tablet 800 mg PO Q6H PRN (Reason: Pain, Moderate (Pain Scale 4-6) Qty: 60 0RF risperidone 1 mg Tablet 1 mg PO BID Qty: 60 0RF metoprolol tartrate 25 mg Tablet 25 mg PO BID Qty: 60 0RF Protocol: Hold for SBP/HR < HOLD for SBP < : 90 HOLD for HR < : 60 Continued albuterol sulfate [ProAir HFA] 90 mcg/actuation Hfa Aerosol Inhaler 2 puff INHALATION QID PRN (Reason: Shortness of breath/wheezing) 0RF Label Comments: Per pharmacist the inhaler was prescribed once on 08/03/[address] [facility] urgent care at [address] [place] [address]. Pt. reported she had a recent history of bronchitis. She denied hx of asthma. Discontinued cetirizine [Allergy Relief (cetirizine)] 10 mg Tablet 10 mg PO DAILY 0RF Label Comments: Per pharmacist at [facility]. Last filled in June 2021. Discharge Orders: Discharge Order (Routine); Ordered 09/20/21 Ordered By: Maria E Her Diet: regular diet Activity on Discharge: As tolerated Stand Alone Forms: Patient Portal Discharge page, Community Support Care Plan Goals: 1. maintain mood 2. No SI/HI 3. No signs of psychosis 4. No use of cocaine or other substances Health Concerns: NEEDS to follow up with ENGINEERING ANALYST for small ovarian complex cyst- take ibuprofen for abdominal cramping Follow up with PCP for regular care Plan of Treatment: 1. Take medications as prescribed 2. Go to nearest ED or call 911 in event of emergency Assessment: Much more organized, logical and coherent. No overt signs of psychosis or delusional content. No signs of aggression towards self or others. Increase insight into need for OP psych treatment. advised not to use cocaine or other substances. Discharge Date/Time: 09/20/21 11:30
== END 2021-09-20 11:30 | disposition home or self-care (01) | DRG 751 ==
PROVIDERS: Registered Nurse; Admitting Provider Psychiatry & Neurology Psychiatry; Visit Provider Social Worker
DX: F29 Unspecified psychosis not due to a substance or known physiological condition (principal); F14.259 Cocaine dependence with cocaine-induced psychotic disorder, unspecified; R00.2 Palpitations; Z20.822 Contact with and (suspected) exposure to COVID-19; Z79.1 Long term (current) use of non-steroidal anti-inflammatories (NSAID); Z87.891 Personal history of nicotine dependence; Z79.899 Other long term (current) drug therapy
CPT/HCPCS: 36415; 76830; 76856; 80053; 80061; 80164; 81003; 82140; 82550; 82607; 82746; 83036; 84443; 84484; 85025; 85652; 86038; 86039; 86141; 86780; 87389; 87635; 93005; 95816; J1200; J2060

== ENCOUNTER 2023-10-19 19:31 | Emergency (ER) | payer OTHER, SELFPAY ==
--- NOTE | 2023-10-19 19:45 | ED.PSYCH ---
HPI - Psych General Chief Complaint: Psychiatric Symptoms Stated Complaint: crisis, Bi polar off meds,acting erratic Time Seen by Provider: 10/19/23 19:34 Source: patient Mode of arrival: EMS Limitations: no limitations History of Present Illness HPI Narrative: Patient comes to the emergency room by ambulance from [place]. According to EMS, patient's significant other called 911 because the patient seems to be acting erratic. Patient states that she has history of psychosis secondary to cocaine use. But patient states that she has not been using cocaine. Patient complaining of bruises especially around her legs. Patient denies any trauma. Related Data Home Medications Medication Instructions Recorded Confirmed albuterol sulfate 90 mcg/actuation 2 puff inhalation QID PRN 08/31/21 08/31/21 aerosol inhaler (ProAir HFA) Shortness of breath/wheezing Previous Rx's Medication Instructions Recorded benztropine 1 mg tablet 1 mg PO BID #60 tabs 09/20/21 divalproex 500 mg tablet,delayed 500 mg PO BID #60 tabs 09/20/21 release ibuprofen 600 mg tablet 800 mg (1.3333 x 600 mg) PO Q6H 09/20/21 PRN Pain, Moderate (Pain Scale 4-6 #60 tabs metoprolol tartrate 25 mg tablet 25 mg PO BID #60 tabs 09/20/21 risperidone 1 mg tablet 1 mg PO BID #60 tabs 09/20/21 trazodone 100 mg tablet 100 mg PO BEDTIME #30 tabs 09/20/21 Allergies Allergy/AdvReac Type Severity Reaction Status Date / Time apple Allergy Unknown Itching Verified 08/31/21 23:48 strawberry Allergy Unknown Itching Verified 08/31/21 23:48 Review of Systems Review of Systems: Constitutional : No Weight loss, No Fever, No Chills, No Night Sweats, No Fatigue, No Malaise ENT/Mouth : No Hearing loss, No Ear Pain, No Nasal Congestion, No Sinus Pain, No Hoarseness, No sore throat, No Rhinorrhea, No Swallowing Difficulty Eyes: No Eye Pain, No Swelling, No Redness, No Foreign Body, No Discharge, No Vision Changes Cardiovascular : No Chest Pain, No SOB, No Dyspnea on Exertion, No Orthopnea, No Edema, No Palpitations Respiratory : No Cough, No Sputum, No Wheezing, No Smoke Exposure, No Dyspnea Gastrointestinal : No Nausea, No Vomiting, No Diarrhea, No Constipation, No abdominal Pain, No Hematochezia, No Melena Genitourinary : no irregular bleeding, No Dysuria, No Urinary Frequency, No Hematuria, No Urinary Incontinence, No Urgency, No Flank Pain, No Urinary Flow Changes, No Hesitancy Musculoskeletal : No joint pain, No Myalgias, No Joint Swelling Skin : No Skin Lesions, No rash Neuro : No Weakness, No Numbness, No Paresthesias, No Loss of Consciousness, No Dizziness, No Headache Psych : Patient denies SI or HI, patient states that she feels that she is beginning to via psychotic even though she did not use cocaine Heme/Lymph: Patient complaining of easy bruising Endocrine : No Polyuria, No Polydipsia, No Temperature Intolerance PMFSH Past Medical History Medical History (Updated 10/19/23 @ 19:51 by Torrie Albrecht MD) Cocaine use disorder, moderate, dependence Bronchitis Social History Social History Household Members: None Housing: Apartment Do you presently have visiting nurse or other home services: No Patient Tobacco Use Status: Former Tobacco user Quit Date: unknown Tobacco use type: Cigarette Years Smoked: Pt. can't remember. e-Cigarette/Vaping Use: Never Used Second Hand Smoke Exposure: No Substance Use Type: Marijuana service: No Physical Exam Vital Signs: Vital Signs: Last Vital Signs Temp 98 F 10/19/23 19:50 Pulse 84 10/19/23 19:50 Resp 18 10/19/23 19:50 BP 133/77 10/19/23 19:50 Pulse Ox 99 10/19/23 19:50 O2 Del Method Room Air 10/19/23 19:50 BMI result Body Mass Index 30.0 Const: Other: Appearance: Alert. Oriented X3. No acute distress. Eyes: Pupils equal, round and reactive to light. ENT: Pharynx normal. Neck: Normal inspection. Neck supple. No lymph nodes noted. No crepitus CVS: Normal heart rate and rhythm. Pulses normal. Normal S1 and S2 Respiratory: No respiratory distress. Breath sounds normal. No Wheezing. No rales Abdomen: Soft and nontender. No rigidity. No distention. Skin: Skin warm and dry. Normal skin color. Normal skin turgor. Extremities: No lower extremity edema. Patient has multiple bruises in the upper extremities but more so in the lower extremities at different stages of healing. Neuro: Oriented X 3. No motor deficit. No sensory deficit. Moving all extremities. No slurred speech. CN 2 through 12 grossly intact Psych: calm, cooperative, hyperverbal, speaking in tangents Course Course Course Narrative: -patient is not SI or HI -patient has multiple bruises especially around the legs, labs pending, patient denies trauma -care team consult pending Medical Decision Making Differential Diagnosis Differential Diagnoses: The differential diagnosis associated with the presentation includes (Anxiety, polysubstance abuse, psychosis.) Admission/Observation Consideration of admission/observation: Escalation of care including admission/observation considered (Patient is under physician observation waiting to be seen by the care team to determine disposition) Lab Data Labs: Lab Results 10/19/23 Range/Units 19:58 Urine Opiates Screen Not Detected (Not Detect) Urine Fentanyl Screen Not Detected (Not Detect) Ur Barbiturates Screen Not Detected (Not Detect) Ur Phencyclidine Scrn Not Detected (Not Detect) Ur Amphetamines Screen Not Detected (Not Detect) U Benzodiazepines Scrn Not Detected (Not Detect) Urine Cocaine Screen Not Detected (Not Detect) U Marijuana (THC) Screen POSITIVE H (Not Detect) Critical Care Time Critical Care Time Critical Care Time: Yes Total Critical Care Time: 30 Attestation: I have personally provided critical care time. Time includes review of lab data, radiology results, discussion with consultants, and monitoring for potential decompensation. Intervention performed as documented. Discharge Plan Discharge Clinical Impression: Psychosis Patient Disposition: Still a Patient Prescriptions: No Action albuterol sulfate [ProAir HFA] 90 mcg/actuation Hfa Aerosol Inhaler 2 puff INHALATION QID PRN (Reason: Shortness of breath/wheezing) Patient Comments: Per pharmacist the inhaler was prescribed once on 08/03/2021 from [facility] urgent care at [address] [place] [address]. Pt. reported she had a recent history of bronchitis. She denied hx of asthma. divalproex 500 mg Tablet,Delayed Release (Dr/Ec) 500 mg PO BID Qty: 60 0RF trazodone 100 mg Tablet 100 mg PO BEDTIME Qty: 30 0RF benztropine 1 mg Tablet 1 mg PO BID Qty: 60 0RF ibuprofen 600 mg Tablet 800 mg PO Q6H PRN (Reason: Pain, Moderate (Pain Scale 4-6) Qty: 60 0RF risperidone 1 mg Tablet 1 mg PO BID Qty: 60 0RF metoprolol tartrate 25 mg Tablet 25 mg PO BID Qty: 60 0RF Protocol: Hold for SBP/HR < HOLD for SBP < : 90 HOLD for HR < : 60
[2023-10-19 19:50] VITALS: BP 133/77; BP 135/89; PULSE 100; PULSE 84; RESP 18; TEMP 36.6; O2SAT 100; O2SAT 99
[2023-10-19 20:05] LABS: Appearance Urine Clear; Color Urine Dark Yellow; Glucose Urine UA Negative (Negative); Leukocyte Esterase Urine Negative (Negative); Nitrite Urine Negative (Negative); PH 5.5 (5.0-9.0); Specific Gravity - Urine >= 1.030 (1.005-1.025); Urine Blood Negative (Negative); Urine Ketones 15 mg/dL (Negative); Urine Protein Trace mg/dL (Neg-Trace)
[2023-10-19 20:11] LABS: Amphetamine Screen Urine Not Detected (Not Detect); Barbiturates, Urine Not Detected (Not Detect); Benzodiazepines Screen Urine Not Detected (Not Detect); Cannabinoid Screen Urine POSITIVE (Not Detect); Cocaine Screen Urine Not Detected (Not Detect); Fentanyl, urine Not Detected (Not Detect); Opiate Screen Urine Not Detected (Not Detect); Phencyclidine Screen Urine Not Detected (Not Detect)
[2023-10-19 20:20] LABS: MANUAL DIFF FLAG NO
[2023-10-19 20:22] LABS: Basophils Percent Auto 0.4 % (0-2); Eosinophils Absolute Auto 0.1 X10*3/uL (0.0-0.4); Eosinophils Percent Auto 2.1 % (0-4); Hematocrit 40.4 % (37.0-47.0); Hemoglobin 13.7 g/dl (12.0-16.0); Imm Gran Abs Auto 0.01 X10*3/uL (0.00-0.03); Imm Gran Pct Auto 0.1 % (0.0-0.4); Lymphocytes Absolute Auto 1.8 X10*3/uL (1.2-4.9); Lymphocytes Percent Auto 26.4 % (20-40); Mean Corpuscular HGB Conc 33.9 g/dl (31.0-35.0); Mean Corpuscular Hemoglobin 27.8 pg (27.0-33.0); Mean Corpuscular Volume 82.1 fL (80.0-98.0); Mean Platelet Volume 11.2 fL (9.4-12.3); Monocytes Absolute Auto 0.5 X10*3/uL (0.1-1.2); Neutrophils Absolute Auto 4.3 x10*3/uL (2.0-8.3); Platelet Count 207 X10*3/uL (160-400); Red Blood Count 4.92 X10*6/uL (4.20-5.50); Red Cell Distribution Width 13.8 % (11.0-16.0); White Blood Count 6.7 X10*3/uL (4.8-10.8)
[2023-10-19 20:33] LABS: INTERNATIONAL NORM RATIO 1.1 (0.9-1.1); Prothrombin Time 13.2 SEC (11.1-13.3)
[2023-10-19 20:35] LABS: Ethanol < 10 mg/dL
[2023-10-19 20:36] LABS: Partial Thromboplastin Time 32.7 SEC (26.0-36.8)
[2023-10-19 20:45] LABS: Alanine Aminotransferase 19 U/L (0-31); Albumin Level 4.3 g/dL (3.5-5.0); Alkaline Phosphatase 49 U/L (39-117); Anion Gap 13 (12-20); Aspartate Amino Transferase 24 U/L (5-31); Bilirubin Direct 0.2 mg/dL (0.0-0.5); Bilirubin Total 0.5 mg/dL (0.0-1.0); Blood Urea Nitrogen 14 mg/dL (9-16); Calcium 9.4 mg/dL (8.4-10.2); Carbon Dioxide 23 mmol/L (22-29); Chloride 109 mmol/L (96-108); Creatinine Clr Calc Pharmacy 118.9; Estimated Glomerular Filt Rate > 60; Glucose Random 90 mg/dL (60-115); HCG Quantitative < 2 mIU/mL; Potassium 3.4 mmol/L (3.3-5.1); Sodium 142 mmol/L (135-145); Total Protein 6.7 g/dL (6.5-8.0)
--- NOTE | 2023-10-19 20:53 | PC.NURSE ---
apparently father who client has restarining order against is on contect list please avoid contact per bf (person who called ambulance)
[2023-10-19 23:46] VITALS: BP 126/81; PULSE 91; RESP 18; TEMP 36.5; O2SAT 100
[2023-10-20] MEDS: Ibuprofen 600 MG TABLET PO (00:42)
--- NOTE | 2023-10-20 03:50 | PC.NURSE ---
client folding bankets in room, restless, declining medications. t/w attempted to voluntarily get medications to help client get rest, client declines, but is redirectable to her volume of activity as far as its impact to nearby clients.
--- NOTE | 2023-10-20 06:09 | PC.NURSE ---
consistent self dialogue
[2023-10-20 07:05] LABS: COVID-19 Test Negative (Negative); IDNOW Serial# 55D5AD1C
--- NOTE | 2023-10-20 07:40 | PC.NURSE ---
assumed care of pt at 0700. pt walking around outside of room with constant self dialogue, responding to internal stimuli. hardly ate breakfast. t/w attempting to do pt's med rec. called pharmacy which is not yet open. Vicky notified and aware who is going to order a psych med consult on pt.
[2023-10-20 09:02] VITALS: BP 115/74; PULSE 101; RESP 18; TEMP 36.7; O2SAT 100
--- NOTE | 2023-10-20 09:15 | ECG_ITS ---
Test Reason : CHECK QT Blood Pressure : / mmHG Vent. Rate : 071 BPM Atrial Rate : 071 BPM P-R Int : 128 ms QRS Dur : 076 ms QT Int : 408 ms P-R-T Axes : 038 069 052 degrees QTc Int : 443 ms Sinus rhythm with marked sinus arrhythmia Otherwise normal ECG When compared with ECG of 08-SEP-2021 13:22, No significant change was found Referred By: Torrie Albrecht Electronically Signed By:Kavin Ashton
--- NOTE | 2023-10-20 09:19 | PC.NURSE ---
Addendum entered by Christine Henderson RN 10/20/23 09:35: t/w also confirmed with pt's boyfriend who she lives with if she is on any medication. pt boyfriend sts no, pt is not normally manic, this only happens when she's under a lot of stress . Original Note: t/w called pt's pharmacy. meds are same as listed in pt summary. pt psych meds last filled in 2021. last meds filled this year were for UTI that have since finished. ELEON[address] notified and aware.
[2023-10-20] MEDS: LORazepam 2 MG/ML VIAL IM (19:16)
[2023-10-20] MEDS: Haloperidol Lactate 5 MG/ML VIAL 10 MG IM (19:16)
--- NOTE | 2023-10-21 05:31 | MHC.EDTECH ---
t/w helped pt with overnight shower once she woke up at 0500. all linen changed.
--- NOTE | 2023-10-21 06:45 | PC.NURSE ---
client agigtated on arrival seemingly agitated by restriction from shower, given im exploded noise corona thereafter, 1hr 15 minmechanical retraint no injury to patient theraeutic ovrall.
--- NOTE | 2023-10-21 07:22 | PC.NURSE ---
patient appears to be asleep in bed, respirations equal and unlabored, skin WD.
[2023-10-21] MEDS: Acetaminophen 325 MG TABLET 975 MG PO (10:35)
[2023-10-21 10:45] VITALS: BP 109/74; PULSE 88; RESP 16; TEMP 36.4; O2SAT 100
[2023-10-21 11:10] LABS: IDNOW Serial# 55D5AD1C; Influenza A Negative (Negative); Influenza B2 Negative (Negative)
--- NOTE | 2023-10-21 11:12 | P.CNPS_ITS ---
History of Present Illness Date of Service: 10/21/2023 Chief Complaint: crisis, Bi polar off meds,acting erratic Discussed with referring provider: Yes Sources of Information: patient interviewed, chart reviewed and crisis/core team assessment reviewed HPI Narrative: Ms. Mccoy is a 27 year-old woman with hx of Bipolar Disorder type one who was brought via EMS due to increase erractic behaviors, hyperverbal, poor sleep. Her utox was positive only for cannabis. No evidence of cocaine use neither this admission nor last admission to the psychiatric unit. Pt is known to this inspector automatic typewriter through previous admission with similar presentation. In the ED, pt was chemically restraint as she was becoming more agitated and combative, not able to be redirectable. Pt seen in the ED. Pt reports she was hearing voices, still reports some voices but states not sure what they are saying. She reports she felt anxious, did not know who she should trust. She reports I am here because I had mental breakdown. She denies SI/HI. She reports poor sleep. She does recognized this inspector automatic typewriter from previous admission. She reports risperidone was helpful and is willing to restart it. Past Psychiatric History: Inpatient: M5 08/2021 OP: none Past medication trials: risperidone, depakote Suicide attempts: pt denies, family denied Medical Evaluation Reviewed: Yes [facility] Medical History (Updated 10/21/23 @ 12:30 by Maria E Her) Bronchitis Family History: mother/grandmother- bipolar Social History: currently living with parents. graduated HS. 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 No children. Not . Trauma History: none Diagnostics Vital Signs (24Hr): Vital Signs - 24 hr 10/21/23 10:45 Temperature 97.6 F Pulse Rate 88 Respiratory Rate 16 Blood Pressure 109/74 Pulse Oximetry 100 Oxygen Delivery Method Room Air BMI result Body Mass Index 30.0 Labs 10/19/23 20:16 10/19/23 20:15 Labs: Laboratory Results - last 48 hr 10/19/23 10/19/23 10/19/23 19:58 20:15 20:16 WBC 6.7 RBC 4.92 Hgb 13.7 Hct 40.4 MCV 82.1 MCH 27.8 MCHC 33.9 RDW 13.8 Plt Count 207 MPV 11.2 Immature Gran % (Auto) 0.1 Neut % (Auto) 64.0 Lymph % (Auto) 26.4 Hart % (Auto) 7.0 Eos % (Auto) 2.1 Baso % (Auto) 0.4 Lymph # (Auto) 1.8 Hart # (Auto) 0.5 Eos # (Auto) 0.1 Baso # (Auto) 0.0 Abs Immat Gran (auto) 0.01 Absolute Neuts (auto) 4.3 Absolute Nucleated RBC 0.000 Nucleated RBC % (auto) 0.0 PT 13.2 INR 1.1 APTT 32.7 Sodium 142 Potassium 3.4 Chloride 109 H Carbon Dioxide 23 Anion Gap 13 BUN 14 Creatinine 0.75 Estim Creat Clear Calc 118.9 Estimated GFR > 60 Random Glucose 90 Calcium 9.4 Total Bilirubin 0.5 Direct Bilirubin 0.2 AST 24 ALT 19 Alkaline Phosphatase 49 Total Protein 6.7 Albumin 4.3 Beta HCG, Quant < 2 Urine Color Dark Yellow Urine Appearance Clear Urine pH 5.5 Ur Specific Randolph >= 1.030 H Urine Protein Trace Urine Glucose (UA) Negative Urine Ketones 15 Urine Blood Negative Urine Nitrite Negative Ur Leukocyte Esterase Negative Urine Opiates Screen Not Detected Urine Fentanyl Screen Not Detected Ur Barbiturates Screen Not Detected Ur Phencyclidine Scrn Not Detected Ur Amphetamines Screen Not Detected U Benzodiazepines Scrn Not Detected Urine Cocaine Screen Not Detected U Marijuana (THC) Screen POSITIVE H Ethyl Alcohol < 10 COVID-19 (AZUL) COVID-19 Clin Com Influenza Type A (STEVIE) Influenza Type B (STEVIE) Influenza A & B Note 10/20/23 10/21/23 06:35 10:42 WBC RBC Hgb Hct MCV MCH MCHC RDW Plt Count MPV Immature Gran % (Auto) Neut % (Auto) Lymph % (Auto) Hart % (Auto) Eos % (Auto) Baso % (Auto) Lymph # (Auto) Hart # (Auto) Eos # (Auto) Baso # (Auto) Abs Immat Gran (auto) Absolute Neuts (auto) Absolute Nucleated RBC Nucleated RBC % (auto) PT INR APTT Sodium Potassium Chloride Carbon Dioxide Anion Gap BUN Creatinine Estim Creat Clear Calc Estimated GFR Random Glucose Calcium Total Bilirubin Direct Bilirubin AST ALT Alkaline Phosphatase Total Protein Albumin Beta HCG, Quant Urine Color Urine Appearance Urine pH Ur Specific Randolph Urine Protein Urine Glucose (UA) Urine Ketones Urine Blood Urine Nitrite Ur Leukocyte Esterase Urine Opiates Screen Urine Fentanyl Screen Ur Barbiturates Screen Ur Phencyclidine Scrn Ur Amphetamines Screen U Benzodiazepines Scrn Urine Cocaine Screen U Marijuana (THC) Screen Ethyl Alcohol COVID-19 (AZUL) Negative COVID-19 Clin Com See Note Influenza Type A (STEVIE) Negative Influenza Type B (STEVIE) Negative Influenza A & B Note See Note Mental Status Exam Mental Status Exam Narrative: Appearance: wearing hospital gown, poor hygiene, in NAD Behavior: calmer, more cooperative Psychomotor: no agitation or retardation noted Speech: mostly clear, normal rate/rhythm, volume, spontaneous TP: mostly linear TC: feeling a little bit better after taking antipsychotic Mood: anxious Affect: congruent SI: none HI: none VH/AH: continues to report hearing voices, reports nothearing them as much but would not elaborate in content Delusions: paranoid delusions Insight/judgment: slowly improving x 2. Memory/cog: alert, oriented x3 confused as to situation Medications Allergies Allergies Allergy/AdvReac Type Severity Reaction Status Date / Time apple Allergy Unknown Itching Verified 08/31/21 23:48 strawberry Allergy Unknown Itching Verified 08/31/21 23:48 Assessment & Plan Assessment & Plan (1) Bipolar 1 disorder with moderate boris: Status: Acute Code(s): F31.12 - Bipolar disorder, current episode manic without psychotic features, moderate Plan Ms. Mccoy is a 27 year-old woman with hx of Bipolar Disorder type 1 who was brought via EMS after boyfriend call 911 as pt has been presenting as more erradicy, not sleeping, psychosis. Utox positive for cannabinoids. Pt is known to this inspector automatic typewriter through previous admission with similar presentation. Just to clarify- no evidence of cocaine use. she has not been positive for cocaine neither this time admission nor past admission. We discussed risks, benefits and alternative treatment options. She agrees to restart risperidone. PLAN 1. Bedsearch [facility] for stabilization, safety and containment. 2. risperidone 1mg po BID 3.olanzapine 10mg po q6h prn agitation. Total time managing care of this patient today ____ minutes.
[2023-10-21] MEDS: risperiDONE 1 MG TABLET PO ×2 (11:26→20:43)
--- NOTE | 2023-10-21 11:28 | PC.NURSE ---
patient has remained calm and cooperative, medicated per MAR, patietn educated on PRN use if she starts to feel agitated or anxious. patient understanding. respirations equal and unlabored.
--- NOTE | 2023-10-21 12:19 | PC.NURSE ---
patient requested coloring materials, patient given markers and coloring page, sitting in bed quietly coloring
--- NOTE | 2023-10-21 15:34 | PC.NURSE ---
patient has been resting quietly in her room, or in the community area of the unit. patient has been calm and cooperative, was observed in her room to be conversing with internal stimuli. patient boyfriend called asking to speak to RN due to patient bringing up that a male in the unit was attempting to talk to patient and trying to get her to lay down with him, this RN reassured patient family member that there has been no instances of patient conversing with male patients on the unit and that she is safe on the unit. Patient family reassured that the units monitored by multiple staff members and security cameras.
[2023-10-21] MEDS: OLANZapine ODT 10 MG TAB.RAPDIS TRANSLINGU (23:33)
[2023-10-21] MEDS: Bacitracin Oint 0.9 GM PACKET 1 APPL TOPICAL (23:45)
[2023-10-22 00:19] VITALS: BP 104/69; PULSE 68; RESP 15; TEMP 36.4; O2SAT 100
--- NOTE | 2023-10-22 07:37 | PC.NURSE ---
Assumed care of patient at 0700, patient is ambulating with somewhat unsteady gait around BH pod, patient is redirectable back to her room. Patient ate all her breakfast without issue. Now resting in common area. Plan of care for IPLOC
[2023-10-22] MEDS: risperiDONE 1 MG TABLET PO ×2 (08:37→21:25)
[2023-10-22 08:39] VITALS: BP 120/79; PULSE 105; RESP 18; TEMP 36.8; O2SAT 100
--- NOTE | 2023-10-22 08:47 | MHC.CARE ---
RAD Team conducted [place] bed[place], referral being reviewed by jacqueline ralph, [facility] solorzano, [facility], [facility] , [facility] , [facility] , [facility],and [place]. RAD team to f/u with facilities to see outcome
--- NOTE | 2023-10-22 13:30 | PC.NURSE ---
Spoke with Sang regarding intake questions
--- NOTE | 2023-10-22 13:42 | MHC.CARE ---
Pt pre-accepted to [facility] for tomorrow morning Arrival time-11am Accepting Doctor- Kaylyn Kim Address: [address] [place] [id number]
[2023-10-22] MEDS: Ibuprofen 800 MG TABLET PO (14:38)
[2023-10-22 14:42] VITALS: RESP 14
--- NOTE | 2023-10-22 18:38 | PC.NURSE ---
pt had uneventful day without issue today. Ambulating independently throughout BH pod, participating in respectful conversation with other pod patients. Patient using phone multiple times throughout the day talking with her boyfriend. Pt appears to be in good mood without issue.
[2023-10-22 20:10] VITALS: BP 110/71; PULSE 92; RESP 20; TEMP 37.1; O2SAT 100
[2023-10-22] MEDS: OLANZapine ODT 10 MG TAB.RAPDIS TRANSLINGU (21:25)
[2023-10-22] MEDS: Acetaminophen 325 MG TABLET 650 MG PO (22:07)
[2023-10-22] MEDS: Bacitracin Oint 0.9 GM PACKET 1 APPL TOPICAL (22:07)
[2023-10-23] MEDS: OLANZapine ODT 10 MG TAB.RAPDIS TRANSLINGU (02:01)
[2023-10-23] MEDS: Magnesium Hydrox/Alum Hydrox 30 ML ORAL.SUSP PO (06:34)
--- NOTE | 2023-10-23 07:40 | PC.NURSE ---
Nurse to Nurse given to ravindra matthews
[2023-10-23] MEDS: risperiDONE 1 MG TABLET PO (08:30)
== END 2023-10-23 09:52 ==
PROVIDERS: Emergency Medicine; Emergency Provider Emergency Medicine; PCP Internal Medicine
DX: F31.12 Bipolar disorder, current episode manic without psychotic features, moderate (principal); F14.259 Cocaine dependence with cocaine-induced psychotic disorder, unspecified; Z11.52 Encounter for screening for COVID-19
CPT/HCPCS: 36415; 80048; 80076; 80307; 81003; 84702; 85025; 85610; 85730; 87502; 87635; 93005; 96372; 99285; J1630; J2060; S9485

== ENCOUNTER → 2023-10-19 20:39 | Outpatient (BNV) | payer OTHER, SELFPAY | PROVIDERS: Emergency Provider Emergency Medicine; PCP Internal Medicine; Visit Provider Social Worker | DX: F31.12 Bipolar disorder, current episode manic without psychotic features, moderate (principal) | CPT/HCPCS: 99285 ==

== ENCOUNTER → 2023-10-20 09:15 | Outpatient (BNV) | payer OTHER, SELFPAY | PROVIDERS: Emergency Provider Emergency Medicine; PCP Internal Medicine; Visit Provider Internal Medicine Cardiovascular Disease | DX: I49.8 Other specified cardiac arrhythmias (principal) | CPT/HCPCS: 93010 ==